=== PATIENT | male | born 1965 | race Hispanic/Latino ===

== ENCOUNTER 2021-10-18 12:53 | Emergency (ER) | payer BC, OTHER ==
--- OUTSIDE RECORDS SUMMARY | 2021-10-18 12:56 | XMS REPORT | Continuity of Care Document ---
:1965 Author Organization [facility] t Address [address] [place] [address] Care Team Providers Name Role Phone Unavailable Unavailable Unavailable Problems This patient has no known problems. Allergies, Adverse Reactions, Alerts This patient has no known allergies or adverse reactions. Medications This patient has no known medications. Procedures This patient has no known procedures. Results Test Description Test Time Test Comments Results Result Comments Source LIPID PANEL 2021-10-12 05:40:18 Test Item Value Reference Range Interpretation Comme nts CHOLESTEROL (test code = 2210) 114 MG/DL <200 TRIGLYCERIDES (test code = 2232) 67 MG/DL <150 HDL CHOLESTEROL (test code = 36 MG/DL >39 L 2220) CALC LDL CHOL (test code = 2237) 64 MG/DL <100 NOTE: CALCULATED LDL IS BASED ON MUKESH-HERRING METHOD WHICHINCLUDES A DJUSTABLE TRIGLYCERIDE:VL DL CHOLESTEROL RATIO.THIS FACT OR VARIES BY MEASURED TRIGLY CERIDE AND NON-HDLCHOLESTE ROL CONCENTRATIONS WITH INCREASED CALCULATED LDL SEENIN HIGHER T RIGLYCERIDE OR LOWER NON-HDL S PECIMENS. FOR MOREINFORMATION , SEE CLIENT ANNOUNCEMENT AT [email or web address] [email or web address] RATIO LDL/HDL (test code = 1.78 RATIO <3.55 2238) HEMOGLOBIN [id number] 05:20:31 Test Item Value Reference Range Interpretation Comments HEMOGLOBIN A1c (test 8.2 % 4.2-5.6 H [facility] [employer] code = 09438) ASSOCIATION IDELINES FOR HGB A1C: PREDIABETES/INC REASED RISK . . . . . . . 5.7 -6.4% DIAGNOSIS OF D IABETES . . . . . . . . . > =6.5% WITH CONFIRM ATION OR APPROPRIATE SYM PTOMS NOTE: ASSAY MAY BE AFFECTED BY HEMOGLOBINOP ATHIES (SICKLE MONALISA L ANEMIA, S-C DISEASE, OTHERS ) OR ARTIFICIALLY LO WERED BY DECREASED RED C ELL SURVIVAL (HEMOLYTIC ANEM IAS, BLOOD LOSS, ETC.) . CONSIDER ALTERNATE TESTI NG OR LABORATORY CONS ULTATION. UNLESS OTHER GARCIA INDICATED, ALL TESTING PERFORMED [facility] PATHOLOGY [facility] [address] [place] [id number] PARACHUTE SUPERVISOR: SEFERINO STINSON M.D. CLIA NUMBER [id number] CAP ACCREDITATION N O. [id number] LIPID [id number] 06:30:26 Test Item Value Reference Range Interpretation Comments CHOLESTEROL (test 102 MG/DL <200 code = 2210) TRIGLYCERIDES (test 63 MG/DL <150 code = 2232) HDL CHOLESTEROL (test 28 MG/DL >39 L code = 2220) CALC LDL CHOL (test 60 MG/DL <100 NOTE: C ALCULATED LDL code = 2237) IS BASED ON MUKESH-HERRING METHOD WHICHINCLUDES ADJUSTABLE TRIGLYCERIDE:VL DL CHOLESTEROL RAT IO.THIS FACTOR VARIES B Y MEASURED TRIGLY CERIDE AND NON-HDLCHOL ESTEROL CONCENTRATIONS WITH INCREASED CALCU LATED LDL SEENIN HIGH ER TRIGLYCERIDE OR LOWER NON-HDL SPECIME NS. FOR MOREINFORMATION , SEE CLIENT ANNOUNCE MENT AT [email or web address] [email or web address] RATIO LDL/HDL 2.14 RATIO <3.55 (test code = 2238) COMPREHENSIVE METABOLIC [id number] 06:30:26 Test Item Value Reference Range Interpretation Comments GLUCOSE (test code = 131 MG/DL 70-99 H 2216) BUN (test code = 19 MG/DL 6-20 2207) CREATININE (test 0.73 MG/DL 0.80-1.40 L EFFECTIVE code = 2214) 04/18/2021, [facility] HAS IMPLEMENTED THE NKF-ASN RECOMME NDED KD-EPI EGF R REFIT CALCULATI ON THAT DOES NOT I NCLUDE A COEFFICIENT FORRACE. FOR MO RE INFORMATION, SE E ANNOUNCEMENT [email or web address] eGFR (2020 CKD-EPI) 106 >60 (test code = 15582) ML/MIN/1.73 CALC BUN/CREAT (test 26 RATIO 6-28 code = 2235) SODIUM (test code = 144 MEQ/L [phone]) POTASSIUM (test code 4.2 MEQ/L 3.5-5.4 = 2228) CHLORIDE (test code 107 MEQ/L 95-107 = 2215) CARBON DIOXIDE (test 24 MEQ/L 19-31 code = 2206) CALCIUM (test code = 9.2 MG/DL 8.5-10.5 2208) PROTEIN, TOTAL (test 7.4 G/DL 6.1-8.3 code = 222) ALBUMIN (test code = 4.3 G/DL 3.5-5.2 2200) CALC GLOBULIN (test 3.1 G/DL 1.9-3.7 code = 2240) CALC A/G RATIO (test 1.4 RATIO 1.0-2.6 code = 2234) BILIRUBIN, TOTAL 1.0 MG/DL See_Comment [Automated message] (test code = 2207) The syste [employer] which generated this result transmitted ref erence range: <=1.2. T he reference range was not used to int erpret this result as normal/abnormal . ALKALINE PHOSPHATASE 98 U/L 40-123 (test code = 2203) AST (test code = 18 U/L 9-50 2217) ALT (test code = 28 U/L 5-50 UNLE SS 2218) OTHERWISE INDIC ATED, ALL TESTING PER FORMED ATCLINICAL PATH [facility]. [address] [place] [address] LABORATORY DIRE CTOR: SEFERINO MAI M.D. CLIA NUMBER [id number] CAP ACCREDITATION N O. [id number] HEMOGLOBIN [id number] 04:07:18 Test Item Value Reference Range Interpretation Comments HEMOGLOBIN A1c (test 7.3 % 4.2-5.6 H [facility] DIABETES code = 46365) ASSOCIATION IDELINES FOR HGB A1C: PREDIABETES/INC REASED RISK . . . . . . . 5.7 -6.4% DIAGNOSIS OF D IABETES . . . . . . . . . > =6.5% WITH CONFIRM ATION OR APPROPRIATE SYM PTOMS NOTE: ASSAY MAY BE AFFECTED BY HEMOGLOBINOP ATHIES (SICKLE MONALISA L ANEMIA, S-C DISEASE, OTHERS ) OR ARTIFICIALLY LO WERED BY DECREASED RED C ELL SURVIVAL (HEMOLYTIC ANEM IAS, BLOOD LOSS, ETC.) . CONSIDER ALTERNATE TESTI NG OR LABORATORY CONS ULTATION. CBC W/AUTO DIFF WITH [id number] 03:18:54 Test Item Value Reference Range Interpretation Comments WBC (test code = 12.6 K/UL 3.5-11.0 H 1001) RBC (test code = 5.85 M/UL 4.50-6.10 1002) HEMOGLOBIN (test code 18.1 G/DL 13.5-17.0 H = 1003) HEMATOCRIT (test code 51.4 % 40.0-51.0 H = 1004) MCV (test code = 87.9 fL 80.0-99.0 1005) MCH (test code = 30.9 PG 25.0-33.0 1006) MCHC (test code = 35.2 G/DL 31.0-36.0 1007) RDW (test code = 13.2 % 11.5-15.0 1038) NEUTROPHILS (test 69.2 % NOTE: EFF ECTIVE code = 1008) 03/28/2021, REFERENCE INTER VALS AND FLAGGING FORRELATIVE (%) WBC DIFFERENTIAL WI LL BE ELIMINATED REDUNDANT TOABS OLUTE COUNTS.SEE [email or web address] _upda te LYMPHOCYTES (test 23.9 % code = 1010) MONOCYTES (test code 4.9 % = 1011) EOSINOPHILS (test 1.3 % code = 1012) BASOPHILS (test code 0.4 % = 1013) IMMATURE GRANYLOCYTES 0.3 % (test code = 1036) NUCLEATED RBCS (test 0.0 /100 See_Comment [Autom ated message] code = 1065) WBC'S The system [employer] generated this result transmit michele reference range : 0.0. The refere nce range was not u sed to interpret th is result as normal/abnormal . PLATELET COUNT (test 161 K/UL 130-400 code = 1015) ABSOLUTE NEUTROPHILS 8.69 K/UL 1.50-7.50 H (test code = 1066) ABSOLUTE LYMPHOCYTES 3.01 K/UL 1.00-4.00 (test code = 1067) ABSOLUTE MONOCYTES 0.62 K/UL 0.20-1.00 (test code = 1068) ABSOLUTE EOSINOPHILS 0.16 K/UL 0.00-0.50 (test code = 1040) ABSOLUTE BASOPHILS 0.05 K/UL 0.00-0.20 (test code = 1069) ABS IMMATURE 0.04 K/UL 0.00-0.10 GRANULOCYTES (test code = 1020) ABS NUCLEATED RBCS 0.00 K/UL 0.00-0.11 (test code = 38862)
--- NOTE | 2021-10-18 14:18 | RAD REPORT ---
EXAM DESCRIPTION: USExtremity Venous Uni Ltd10/18/2021 1:39 pm CLINICAL HISTORY: Right leg pain FINDINGS: Right common femoral, superficial femoral, popliteal and right posterior tibial veins are compressible and demonstrate augmentation. Doppler demonstrates good flow. Echogenic material consistent with acute thrombus is present within the anterior tibial vein Grayscale, color and spectral analysis performed on all vessels IMPRESSION: Acute thrombus within the anterior tibial vein within the calf
--- NOTE | 2021-10-18 14:19 | RAD REPORT ---
EXAM DESCRIPTION: US - Lower Extremity Artery Uni Ltd - 10/18/2021 1:49 pm CLINICAL HISTORY: Leg pain COMPARISON: None FINDINGS: The right common femoral artery demonstrates triphasic waveforms Moderate thrombus within the mid right superficial femoral artery. The distal right superficial femoral artery is occluded Collaterals reconstitute the popliteal artery. The right popliteal, posterior tibial and dorsalis pedis arteries demonstrate monophasic waveforms di minished in amplitude Grayscale, color and spectral analysis performed on all vessels IMPRESSION: Occlusion of the distal right superficial femoral artery
[2021-10-18 14:57] LABS: Absolute Lymphocytes (CBC) 2.6 K/uL (0.7-4.9); Hematocrit 50.2 % (39.6-49.0); Lymphocytes % 18.4 % (15.3-44.8); MPV 9.3 fL (7.6-11.3); RBC Red Blood Cell Count 5.59 M/uL (4.33-5.43)
[2021-10-18 15:01] LABS: Protime INR 1.01
[2021-10-18] MEDS ORDERED: HEPARIN 5000 UNIT/ML 1 ML VIAL ONE (15:04)
[2021-10-18] MEDS ORDERED: HEPARIN/D5W 25,000 UNIT/500 ML BAG IV ONE (15:04)
--- NOTE | 2021-10-18 15:12 | ER ---
Nurse's Notes [facility] Name: Connor Mirza Sr Age: 56 yrs Sex: Male : 1965 Arrival Date: 10/18/2021 Time: 12:57 Bed 7 Private MD: Diagnosis: Acute embolism and thrombosis of other specified deep vein of right lower extremity-anterior tibial vein;Moderate thrombus within mid right superficial femoral artery;Distal right superficial femoral artery occlusion Presentation: 10/18 13:10 Chief complaint: Patient states: that for approx 3 days now, he has been having pain in ap3 his right calf area and it radiates to his right ankle. patient states the pain feels like cramps and only comes on during ambulation. patient also reports a new onset "green hue" to his right ankle. Coronavirus screen: At this time, the client does not indicate any symptoms associated with coronavirus-19. Ebola Screen: No symptoms or risks identified at this time. Initial Sepsis Screen: Does the patient meet any 2 criteria? No. Patient's initial sepsis screen is negative. Does the patient have a suspected source of infection? No. Patient's initial sepsis screen is negative. Risk Assessment: Do you want to hurt yourself or someone else? Patient reports no desire to harm self or others. Onset of symptoms was October 15, 2021. 13:10 Method Of Arrival: Ambulatory ap3 13:10 Acuity: BINTA 3 ap3 Triage Assessment: 13:13 General: Appears in no apparent distress. Behavior is calm, cooperative. Pain: ap3 Complains of pain in right calf Pain radiates to right ankle Pain began 2-3 days ago. Pain: Aggravated by increased activity. Neuro: Level of Consciousness is awake, alert, obeys commands, Oriented to person, place, time, situation. Cardiovascular: Patient's skin is warm and dry. Respiratory: Airway is patent Respiratory effort is even, unlabored, Respiratory pattern is regular, symmetrical. Historical: - Allergies: 13:11 No Known Allergies; ap3 - Home Meds: 17:18 metformin 500 mg oral tab 2 tabs 2 times per day [Active]; Levemir U-100 Insulin 100 ph unit/mL subcutaneous soln 20 unit nightly [Active]; amlodipine oral [Active]; Lisinopril Oral [Active]; atorvastatin oral [Active]; - PMHx: 13:11 Hypertensive disorder; Diabetes mellitus; ap3 - Immunization history:: Client reports receiving the 2nd dose of the Covid vaccine. - Social history:: Smoking status: Patient reports the use of cigarette tobacco products, smokes one-half pack cigarettes per day. Screenin:13 Abuse screen: Denies threats or abuse. Nutritional screening: No deficits noted. ap3 Tuberculosis screening: No symptoms or risk factors identified. 14:52 Fall Risk None identified. ph Assessment: 14:51 General: Appears in no apparent distress. comfortable, well groomed, Behavior is calm, ph cooperative, appropriate for age, Denies fever, feeling ill. Pain: Complains of pain in right calf. Neuro: Level of Consciousness is awake, alert, obeys commands, Oriented to person, place, time, situation. Cardiovascular: Capillary refill < 3 seconds in bilateral fingers Patient's skin is warm and dry. Pulses are 3+ in left dorsalis pedis artery. Respiratory: Denies shortness of breath. Derm: Skin is intact, is healthy with good turgor, Skin is pink, warm \\T\\ dry. Musculoskeletal: Circulation, motion, and sensation intact. Range of motion: intact in all extremities. 17:30 Reassessment: Patient appears in no apparent distress at this time. Patient and/or ph family updated on plan of care and expected duration. Pain level reassessed. Patient is alert, oriented x 3, equal unlabored respirations, skin warm/dry/pink. Attempted to call report to [facility], placed on hold approx 13 minutes, will attempt to call again. 18:00 Reassessment: Patient appears in no apparent distress at this time. Patient and/or ph family updated on plan of care and expected duration. Pain level reassessed. Patient is alert, oriented x 3, equal unlabored respirations, skin warm/dry/pink. Report called to Georgina GONZALEZ at [facility], awaiting EMS for transport, pt resting comfortably watching videos on his phone. Vital Signs: 13:10 BP 134 / 82; Pulse 67; Resp 17; Temp 98.0; Pulse Ox 97% ; Weight 89.36 kg; Height 5 ft. ap3 6 in. (167.64 cm); 15:54 BP 141 / 78; Pulse 69; Resp 18; Temp 97.8; Pulse Ox 98% on R/A; ph 18:40 BP 132 / 86; Pulse 64; Resp 18; Pulse Ox 98% on R/A; ph 13:10 Body Mass Index 31.80 (89.36 kg, 167.64 cm) ap3 ED Course: 12:57 Patient arrived in ED. rg4 13:01 Julio Cesar Mills NP is PHCP. pm1 13:01 Amanuel Partida MD is Attending Physician. pm1 13:11 Triage completed. ap3 13:13 Arm band placed on left wrist. ap3 13:13 Patient has correct armband on for positive identification. Pulse ox on. NIBP on. ap3 13:41 Extremity Venous Uni Ltd US In Process Unspecified. EDMS 13:42 Lower Extremity Artery Uni Ltd US In Process Unspecified. EDMS 14:37 Daniella Mendoza, CARLOS is Primary Nurse. ph 14:49 Initial lab(s) drawn, by me, sent to lab. Missed attempt(s): 22 gauge in right forearm. ph Bleeding controlled, band aid applied, catheter tip intact. 15:40 Inserted saline lock: 20 gauge in right forearm, using aseptic technique. bp 15:52 initiated transfer to [facility]. bd 15:53 No provider procedures requiring assistance completed. Patient transferred, IV remains ph in place. 15:57 pt denied at [facility], [facility] due to not beds at [facility] and no bd vascular at [facility]. per shell. 16:17 initiated transfer to [facility]. bd 16:54 pt accepted in transfer to [facility] by Dr St,admin approval given by daljit Vazquez. Administered Medications: 15:50 Drug: Heparin (DVT/PE- Bolus per protocol) - HEParin 80 units/kg {Co-Signature: bp ph (Henry Reinoso RN).} Route: IVP; Site: right forearm; 15:52 Follow up: Response: No adverse reaction ph 15:51 Drug: Heparin (DVT/PE Drip) 18 units/kg/hr - (HEParin 98431 units, D5W 500 ml) ph {Co-Signature: bp (Henry Reinoso RN).} {Note: 1600 units/kg/hr.} Route: IV; Rate: calculated rate; Site: right forearm; 15:52 Follow up: Response: No adverse reaction; IV Status: Infusion continued upon transfer ph Medication: 14:52 VIS not applicable for this client. ph Outcome: 15:11 ER care complete, transfer ordered by MD. pm1 19:20 Transferred by ground EMS to other acute care facility: [facility]. Transfer form completed. sm5 X-rays sent w/ patient. 19:20 Condition: stable 19:20 Instructed on the need for transfer. 19:29 Patient left the ED. as6 Signatures: Dispatcher [employer] EDMS Mallika Clayton Patricia, RN RN ph Julio Cesar Mills, HAROON MANAGER COPY pm1 Rachna Peguero rg4 Henry Reinoso RN RN bp Deepti Luna RN RN ap3 Reji Salguero RN RN as6 Yin Cruz RN RN 5 Henry Reinoso RN bp Corrections: (The following items were deleted from the chart) 17:21 13:11 Home Meds: insulin-unknown; ap3 ph 17:21 13:11 Home Meds: Metformin Oral; ap3 ph 17:21 13:11 Home Meds: unknown blood pressure med; ap3 ph
--- NOTE | 2021-10-18 15:12 | EDPHYS ---
Physician Documentation [facility] Name: Connor Mirza Sr Age: 56 yrs Sex: Male : 1965 Arrival Date: 10/18/2021 Time: 12:57 Bed 7 Private MD: ED Physician Amanuel Partida HPI: 10/18 13:22 This 56 yrs old Male presents to ER via Ambulatory with complaints of Right pm1 Leg Pain. 13:22 The patient presents with pain, that is acute. The complaints affect the right calf. pm1 Context: The problem was sustained at an unknown site, resulted from an unknown cause, the patient can fully bear weight, the patient is able to ambulate, Problem is a result from a previous injury: No. Onset: The symptoms/episode began/occurred 3 day(s) ago. Modifying factors: the symptoms are aggravated by walking. Associated signs and symptoms: Pertinent negatives fever, numbness, swelling, tingling. Treatment prior to arrival includes: no previous treatment. Severity of symptoms: in the emergency department the symptoms are actually worse. The patient has not experienced similar symptoms in the past. The patient has not recently seen a physician. Historical: - Allergies: 13:11 No Known Allergies; ap3 - Home Meds: 17:18 metformin 500 mg oral tab 2 tabs 2 times per day [Active]; Levemir U-100 Insulin 100 ph unit/mL subcutaneous soln 20 unit nightly [Active]; amlodipine oral [Active]; Lisinopril Oral [Active]; atorvastatin oral [Active]; - PMHx: 13:11 Hypertensive disorder; Diabetes mellitus; ap3 - Immunization history:: Client reports receiving the 2nd dose of the Covid vaccine. - Social history:: Smoking status: Patient reports the use of cigarette tobacco products, smokes one-half pack cigarettes per day. ROS: 13:22 Constitutional: Negative for fever, chills, and weight loss, Cardiovascular: Negative pm1 for chest pain, palpitations, and edema, Respiratory: Negative for shortness of breath, cough, wheezing, and pleuritic chest pain, Abdomen/GI: Negative for abdominal pain, nausea, vomiting, diarrhea, and constipation. 13:22 MS/extremity: Positive for pain, of the right calf, with walking, Negative for injury or acute deformity, decreased range of motion, deformity. 13:22 Skin: Positive for discoloration, of the right foot with walking. 13:22 Neuro: Positive for numbness and tingling to right foot with walking when calf pain is present. 13:22 All other systems are negative. Exam: 13:22 Constitutional: This is a well developed, well nourished patient who is awake, alert, pm1 and in no acute distress. Head/Face: Normocephalic, atraumatic. 13:22 Skin: Warm, dry with normal turgor. Normal color with no rashes, no lesions, and no evidence of cellulitis. MS/ Extremity: Pulses equal, no cyanosis. Neurovascular intact. Full, normal range of motion. 13:22 Cardiovascular: Exam negative for acute changes, Rate: normal, Rhythm: regular, Pulses: pulse deficits are appreciated, right dorsal pedis and right posterior tibial pulse not palpable, Heart sounds: normal, normal S1and S2, Edema: is not appreciated. 13:22 Respiratory: Exam negative for acute changes, respiratory distress, shortness of breath. 13:22 Neuro: Exam negative for acute changes, Orientation: is normal, Mentation: is normal, Motor: is normal, moves all fours. Vital Signs: 13:10 BP 134 / 82; Pulse 67; Resp 17; Temp 98.0; Pulse Ox 97% ; Weight 89.36 kg; Height 5 ft. ap3 6 in. (167.64 cm); 15:54 BP 141 / 78; Pulse 69; Resp 18; Temp 97.8; Pulse Ox 98% on R/A; ph 18:40 BP 132 / 86; Pulse 64; Resp 18; Pulse Ox 98% on R/A; ph 13:10 Body Mass Index 31.80 (89.36 kg, 167.64 cm) ap3 MDM: 13:15 Patient medically screened. pm1 14:56 Data reviewed: vital signs. Data interpreted: Pulse oximetry: on room air is 97 %. pm1 Interpretation: normal. 15:08 Counseling: I had a detailed discussion with the patient and/or guardian regarding: the pm1 historical points, exam findings, and any diagnostic results supporting the discharge/admit diagnosis, lab results, radiology results, the need to transfer to another facility, [facility] does not immediately have the required specialist. 16:52 ED course: Patient transferred to [facility] system. Attempted to transfer to [facility] but pm1 denied due to bed availability. 16:52 Physician consultation: Vascular surgeon was contacted at 16:53, regarding regarding pm1 transfer, [facility] patient's condition, and will see patient. 10/18 13:22 Order name: CBC with Diff; Complete Time: 15:34 pm1 10/18 13:22 Order name: BMP; Complete Time: 15:34 pm1 10/18 13:22 Order name: Extremity Venous Uni Ltd US; Complete Time: 14:34 pm1 10/18 14:43 Order name: PT-INR; Complete Time: 15:34 pm1 10/18 14:43 Order name: Ptt, Activated; Complete Time: 15:34 pm1 10/18 14:50 Order name: COVID-19 SARS RT PCR (Document "Date of Onset" if Symptomatic); Complete ph Time: 17:12 10/18 13:22 Order name: Lower Extremity Artery Uni Ltd US; Complete Time: 14:34 pm1 10/18 13:22 Order name: IV Saline Lock; Complete Time: 14:49 pm1 Administered Medications: 15:50 Drug: Heparin (DVT/PE- Bolus per protocol) - HEParin 80 units/kg {Co-Signature: bp ph (Henry Reinoso RN).} Route: IVP; Site: right forearm; 15:52 Follow up: Response: No adverse reaction ph 15:51 Drug: Heparin (DVT/PE Drip) 18 units/kg/hr - (HEParin 70470 units, D5W 500 ml) ph {Co-Signature: bp (Henry Reinoso RN).} {Note: 1600 units/kg/hr.} Route: IV; Rate: calculated rate; Site: right forearm; 15:52 Follow up: Response: No adverse reaction; IV Status: Infusion continued upon transfer ph Disposition Summary: 10/18/21 15:11 Transfer Ordered Transfer Location: [facility] pm1 Reason: Specialty pm1 Condition: Stable pm1 Problem: new pm1 Symptoms: have improved pm1 Accepting Physician: (10/18/21 19:29) as6 Diagnosis - Moderate thrombus within mid right superficial femoral artery pm1 - Acute embolism and thrombosis of other specified deep vein of right lower extremity pm1 - anterior tibial vein(10/18/21 15:13) - Distal right superficial femoral artery occlusion pm1 Forms: - Medication Reconciliation Form pm1 - SBAR form pm1 Signatures: Dispatcher [employer] EDDaniella Casillas, CARLOS RN ph Julio Cesar Mills, HAROON EXPLOSIVES HANDLER pm1 Deepti Luna RN RN ap3 Reji Salguero RN RN as6 Henry Reinoso RN bp Corrections: (The following items were deleted from the chart) 15:13 15:11 MD pm1 pm1 15:13 15:11 Acute embolism and thrombosis of other specified deep vein of right lower pm1 extremity pm1 15:20 15:13 MD pm1 pm1 17:21 13:11 Home Meds: insulin-unknown; ap3 ph 17:21 13:11 Home Meds: Metformin Oral; ap3 ph 17:21 13:11 Home Meds: unknown blood pressure med; ap3 ph 19:29 15:20 MD pm1 as6
[2021-10-18 15:16] LABS: Potassium 3.8 mmol/L (3.5-5.1)
[2021-10-18 19:39] VITALS: TEMP 97.8; O2SAT 98
[2021-10-18 19:41] VITALS: BP 132/86
== END 2021-10-18 19:29 | disposition short-term general hospital (02) ==
LOC: ER 12:53
DX: I82.411 Acute embolism and thrombosis of right femoral vein (principal); I82.441 Acute embolism and thrombosis of right tibial vein; I70.8 Atherosclerosis of other arteries; E11.9 Type 2 diabetes mellitus without complications; I10 Essential (primary) hypertension; F17.210 Nicotine dependence, cigarettes, uncomplicated; Z79.4 Long term (current) use of insulin; Z20.822 Contact with and (suspected) exposure to COVID-19
CPT/HCPCS: 85025; 80048; 36415; 85610; 85730; 93926; 93971; U0003; J1644 ×2; 96374; 99285

== ENCOUNTER 2021-11-07 04:25 | Emergency (ER) | payer BC ==
[2021-11-07] MEDS ORDERED: ONDANSETRON 4 MG/2 ML VIAL ONE ×2 (05:15→05:46)
[2021-11-07] MEDS ORDERED: BISACODYL 10 MG RECTAL SUPP ONE (05:15)
[2021-11-07] MEDS ORDERED: LACTULOSE 20 GM/30 ML UCUP ONE ×2 (05:16→08:08)
[2021-11-07] MEDS ORDERED: NA CHLORIDE 0.9% 1,000 ML ONE (05:16)
[2021-11-07 05:44] LABS: Absolute Lymphocytes (CBC) 1.4 K/uL (0.7-4.9); Hematocrit 42.2 % (39.6-49.0); MCV 88.4 fL (80-100); MPV 8.9 fL (7.6-11.3); RBC Red Blood Cell Count 4.77 M/uL (4.33-5.43)
[2021-11-07] MEDS ORDERED: FENTANYL CITR 100 MCG/2 ML ONE (05:44)
[2021-11-07 05:57] LABS: Albumin 3.3 g/dL (3.4-5.0); Potassium 3.9 mmol/L (3.5-5.1); Protein, Total 7.2 g/dL (6.4-8.2)
--- NOTE | 2021-11-07 07:44 | RAD REPORT ---
EXAM DESCRIPTION: CT - Abdomen Pelvis W Contrast - 11/07/2021 7:27 am CLINICAL HISTORY: Abdominal pain, acute, nonlocalized COMPARISON: No comparisons TECHNIQUE: Biphasic, helical CT imaging of the abdomen and pelvis was performed following 100 ml non -ionic IV contrast. Oral contrast was given. All CT scans are performed using dose optimization technique as appropriate and may include automated exposure control or mA/KV adjustment according to patient size. FINDINGS: No suspicious findings in the lung bases. Liver attenuation is mildly fatty infiltrated. No focal liver parenchymal lesion. No portal vein abno rmality identified. Spleen and pancreas show no suspicious findings. Gallbladder is distended but not grossly dilated. There is no wall thickening or edema. A 3 cm stone is present in the fundus of the gallbladder. There is a 2 centimeter rim calcified stone at the neck of the gallbladder. No biliary tree abnormality identified. Symmetric renal function is seen with no hydronephrosis or suspicious renal mass. No pyelonephritis o r acute parenchymal process. No adrenal abnormalities. Urinary bladder is mostly contracted. No gross abnormality seen. Prostate gland and seminal vesicles show no suspicious findings. Contrast filled stomach shows no wall thickening or mass. No acute small bowel finding identifiable. The appendix is normal. Large amount of stool is present distending the colon from cecum to mid transverse colon. There is ai r filling but not dilating the left-side of the transverse colon. There is of mucosal nodularity are seen in the left-side of the transverse colon likely summation artifact of mucosal folds rather than polyps. However, there is a 2.5 centimeter long area of circumferential narrowing of the colon at the splenic flexure. The possibility of a mass cannot be excluded. There is no congestion or edema in th e adjacent fat. Peristalsis artifact can have this appearance. Distal to this focal finding the left- side of the colon is decompressed with very little stool present within the lumen. No free air, free fluid or inflammatory stranding. No mass or bulky lymphadenopathy. Fat extends int o each inguinal canal, slightly larger on the right. No suspicious bony findings. IMPRESSION: Placed to gallstones are present in the distended but nondilated gallbladder including a 2 centimeter stone at the neck. No gallbladder wall thickening, pericholecystic edema or biliary josef e abnormality. Approximately 2.5 cm area of circumferential narrowing of the colon at the splenic flexure. While thi s may simply be a peristalsis artifact, the colon proximal to this point is distended and colon dista l to this point is decompressed. Follow-up colonoscopy may be needed to determine if this is a true finding. Mild diffuse fatty infiltration of the liver.
[2021-11-07 08:08] LABS: Urine Blood Trace-lysed (Negative); Urine Glucose Negative (Negative); Urine Protein Negative (Negative); Urine pH 5.5 (5.0-7.0)
[2021-11-07] MEDS ORDERED: KETOROLAC 30 MG/ML INJ ONE (10:08)
--- NOTE | 2021-11-07 11:28 | RAD REPORT ---
EXAM DESCRIPTION: US - Abdomen Exam Limited - 11/07/2021 10:33 am CLINICAL HISTORY: Abdominal pain. FINDINGS: Gallstones. Gallbladder is distended. Moderate amount of sludge. Gallbladder wall upper limits normal thickness The biliary tree is normal caliber. IMPRESSION: Cholelithiasis with gallbladder distention
[2021-11-07 11:35] LABS: Protime INR 1.12
--- NOTE | 2021-11-07 14:54 | ER ---
Nurse's Notes [facility] Name: Connor Mirza Sr Age: 56 yrs Sex: Male : 1965 Arrival Date: 11/07/2021 Time: 04:28 Bed 15 Private MD: Diagnosis: Abdominal pain, Generalized;Constipation;Other cholelithiasis without obstruction;Vomiting Presentation: 11/07 04:48 Chief complaint: Patient states: "I havent been able to menon menon in 3 days and my vc1 stomach has been hurting. Tonight the pain got really bad and I threw up a few times and it had some blood in it so I decided I should come to the ER". 04:49 Coronavirus screen: Vaccine status: Patient reports receiving the 2nd dose of the covid vc1 vaccine. Moderna At this time, the client does not indicate any symptoms associated with coronavirus-19. Ebola Screen: No symptoms or risks identified at this time. Initial Sepsis Screen: Does the patient meet any 2 criteria? No. Patient's initial sepsis screen is negative. Does the patient have a suspected source of infection? No. Patient's initial sepsis screen is negative. Risk Assessment: Do you want to hurt yourself or someone else? Patient reports no desire to harm self or others. Onset of symptoms was November 04, 2021. 04:49 Method Of Arrival: Wheelchair vc1 04:49 Acuity: BINTA 3 vc1 Triage Assessment: 04:52 General: Appears in no apparent distress. uncomfortable, Behavior is calm, cooperative, vc1 appropriate for age. Pain: Complains of pain in epigastric area Pain does not radiate. Pain currently is 8 out of 10 on a pain scale. at worst was 10 out of 10 on a pain scale. Quality of pain is described as pressure, sharp. EENT: No deficits noted. EENT: Reports. Neuro: Level of Consciousness is awake, alert, obeys commands, Oriented to person, place, time, situation, Appropriate for age. Cardiovascular: No deficits noted. Respiratory: Airway is patent Respiratory effort is even, unlabored, Respiratory pattern is regular, symmetrical. Respiratory:. GI: Abdomen is round non-distended, Last BM was November 04, 2021. Reports constipation, epigastric pain, vomiting. GI: Reports blood in vomit. : No deficits noted. Derm: No deficits noted. Musculoskeletal: No deficits noted. Historical: - Allergies: 04:50 No Known Allergies; vc1 - PMHx: 04:50 diabetes mellitus; Hypertensive disorder; DVT; High Cholesterol; vc1 - Immunization history:: Adult Immunizations up to date, Client reports receiving the 2nd dose of the Covid vaccine. - Social history:: Smoking status: Patient denies any tobacco usage or history of. - Family history:: not pertinent. Screenin:52 Abuse screen: Denies threats or abuse. Nutritional screening: No deficits noted. vc1 Tuberculosis screening: No symptoms or risk factors identified. Fall Risk None identified. Assessment: 04:54 GI: Abdomen is tender to palpation Guarding noted in epigastric area. vc1 05:00 GI: Bowel sounds diminished in right upper quadrant, left upper quadrant, right lower ke1 quadrant and left lower quadrant. 06:11 Reassessment: Patient appears in no apparent distress at this time. Patient states ke1 feeling better. Patient states symptoms have improved. SLEEPING . 07:34 General: Appears in no apparent distress. Behavior is calm, cooperative. Pain: ke1 Complains of pain in abdomen diffusely Pain currently is 3 out of 10 on a pain scale. Quality of pain is described as crampy. 09:45 Reassessment: Patient and/or family updated on plan of care and expected duration. Pain jh6 level reassessed. pt stating that the pain has moved to lower abd and has had three small lose B/M since meds given. states that the pain was increased. provider advised. Vital Signs: 04:49 BP 164 / 86; Pulse 62; Resp 18; Temp 98.1(O); Pulse Ox 100% on R/A; Weight 88.45 kg; vc1 Height 5 ft. 6 in. (167.64 cm); Pain 8/10; 06:20 BP 162 / 82; Pulse 58; Resp 16; Pulse Ox 99% on R/A; ke1 07:34 BP 173 / 78; Pulse 65; Resp 16; Pulse Ox 100% ; ke1 04:49 Body Mass Index 31.47 (88.45 kg, 167.64 cm) vc1 ED Course: 04:28 Patient arrived in ED. ja2 04:40 Perry Sanz MD is Attending Physician. rafael 04:50 Triage completed. vc1 04:50 Arm band placed on right wrist. vc1 04:56 Chaz Ventura, CARLOS is Primary Nurse. ke1 05:20 Inserted saline lock: 20 gauge in right antecubital area, using aseptic technique. ke1 06:21 Bed in low position. Call light in reach. ke1 07:[address] ke1 07:28 CT Abd/Pelvis - PO and IV Contrast In Process Unspecified. EDMS 09:00 Attending Physician role handed off by Perry Sanz MD kdr 09:00 Vitaly Amador MD is Attending Physician. kdr 10:28 Patient taken to ultrasound. via stretcher. jh6 10:35 US Abdomen Limited In Process Unspecified. EDMS 14:53 Cesar Cobb MD is Referral Physician. 6 Administered Medications: 05:32 Drug: NS 0.9% 1000 ml Route: IV; Rate: 1 bolus; Site: right antecubital; ke1 05:32 Drug: Zofran (Ondansetron) 4 mg Route: IVP; Site: right antecubital; ke1 05:32 Drug: Dulcolax (bisacodyl) Suppository 10 mg Route: MN; ke1 05:32 Drug: Lactulose 30 grams Volume: 45 ml; Route: PO; ke1 05:45 Drug: fentaNYL (PF) 50 mcg Route: IVP; Site: right antecubital; ke1 05:45 Drug: Zofran (Ondansetron) 4 mg Route: IVP; Site: right antecubital; ke1 08:07 Drug: Lactulose 30 grams Volume: 45 ml; Route: PO; ke1 09:00 Drug: Ketorolac 15 mg Route: IVP; Site: right antecubital; 6 11:02 Follow up: Response: Pain is decreased [facility] Outcome: 14:53 Discharge ordered by . [facility] 14:53 Patient left the ED. [facility] Signatures: Dispatcher [employer] EDMD Perry Sanz MD MD cha Rittger, Kevin, MD MD kdr Alexander, Jessica ja2 Hastedt, Jennifer, RN RN 6 Anita Plunkett RN RN 1 Chaz Ventura RN RN ke
--- NOTE | 2021-11-07 14:54 | EDPHYS ---
Physician Documentation [facility] Name: Connor Mirza Sr Age: 56 yrs Sex: Male : 1965 Arrival Date: 11/07/2021 Time: 04:28 Bed 15 Private MD: ED Physician Vitaly Amador HPI: 11/07 07:44 This 56 yrs old Male presents to ER via Wheelchair with complaints of rafael Constipation, Vomiting Blood, Abdominal Pain. 07:44 The patient presents with abdominal pain in the upper abdomen, in the lower abdomen. rafael Onset: The symptoms/episode began/occurred yesterday. The symptoms do not radiate. Associated signs and symptoms: Pertinent positives: constipation. The symptoms are described as constant, crampy. Modifying factors: The symptoms are alleviated by nothing, the symptoms are aggravated by nothing. Severity of pain: At its worst the pain was moderate in the emergency department the pain is unchanged. The patient has not experienced similar symptoms in the past. Historical: - Allergies: 04:50 No Known Allergies; vc1 - PMHx: 04:50 diabetes mellitus; Hypertensive disorder; DVT; High Cholesterol; vc1 - Immunization history:: Adult Immunizations up to date, Client reports receiving the 2nd dose of the Covid vaccine. - Social history:: Smoking status: Patient denies any tobacco usage or history of. - Family history:: not pertinent. ROS: 07:44 Constitutional: Negative for fever, chills, and weight loss, Eyes: Negative for injury, rafael pain, redness, and discharge, ENT: Negative for injury, pain, and discharge, Neck: Negative for injury, pain, and swelling, Cardiovascular: Negative for chest pain, palpitations, and edema, Respiratory: Negative for shortness of breath, cough, wheezing, and pleuritic chest pain, Back: Negative for injury and pain, : Negative for injury, bleeding, discharge, and swelling, MS/Extremity: Negative for injury and deformity, Skin: Negative for injury, rash, and discoloration, Neuro: Negative for headache, weakness, numbness, tingling, and seizure, Psych: Negative for depression, anxiety, suicide ideation, homicidal ideation, and hallucinations, Allergy/Immunology: Negative for hives, rash, and allergies, Endocrine: Negative for neck swelling, polydipsia, polyuria, polyphagia, and marked weight changes, Hematologic/Lymphatic: Negative for swollen nodes, abnormal bleeding, and unusual bruising. 07:44 Abdomen/GI: Positive for abdominal pain, constipation, of the suprapubic area, right upper quadrant, left upper quadrant, right lower quadrant and left lower quadrant. Exam: 07:44 Constitutional: This is a well developed, well nourished patient who is awake, alert, rafael and in no acute distress. Head/Face: Normocephalic, atraumatic. Eyes: Pupils equal round and reactive to light, extra-ocular motions intact. Lids and lashes normal. Conjunctiva and sclera are non-icteric and not injected. Cornea within normal limits. Periorbital areas with no swelling, redness, or edema. ENT: Nares patent. No nasal discharge, no septal abnormalities noted. Tympanic membranes are normal and external auditory canals are clear. Oropharynx with no redness, swelling, or masses, exudates, or evidence of obstruction, uvula midline. Mucous membranes moist. Neck: Trachea midline, no thyromegaly or masses palpated, and no cervical lymphadenopathy. Supple, full range of motion without nuchal rigidity, or vertebral point tenderness. No Meningismus. Chest/axilla: Normal chest wall appearance and motion. Nontender with no deformity. No lesions are appreciated. Cardiovascular: Regular rate and rhythm with a normal S1 and S2. No gallops, murmurs, or rubs. Normal PMI, no JVD. No pulse deficits. Respiratory: Lungs have equal breath sounds bilaterally, clear to auscultation and percussion. No rales, rhonchi or wheezes noted. No increased work of breathing, no retractions or nasal flaring. Back: No spinal tenderness. No costovertebral tenderness. Full range of motion. Male : Normal genitalia with no discharge or lesions. Skin: Warm, dry with normal turgor. Normal color with no rashes, no lesions, and no evidence of cellulitis. MS/ Extremity: Pulses equal, no cyanosis. Neurovascular intact. Full, normal range of motion. Neuro: Awake and alert, GCS 15, oriented to person, place, time, and situation. Cranial nerves II-XII grossly intact. Motor strength 5/5 in all extremities. Sensory grossly intact. Cerebellar exam normal. Normal gait. Psych: Awake, alert, with orientation to person, place and time. Behavior, mood, and affect are within normal limits. 07:44 Abdomen/GI: Inspection: distension, that is mild, Bowel sounds: active, Palpation: mild abdominal tenderness, in all quadrants, Liver: no appreciated palpable abnormalities, Hernia: not appreciated. Vital Signs: 04:49 BP 164 / 86; Pulse 62; Resp 18; Temp 98.1(O); Pulse Ox 100% on R/A; Weight 88.45 kg; vc1 Height 5 ft. 6 in. (167.64 cm); Pain 8/10; 06:20 BP 162 / 82; Pulse 58; Resp 16; Pulse Ox 99% on R/A; ke1 07:34 BP 173 / 78; Pulse 65; Resp 16; Pulse Ox 100% ; ke1 04:49 Body Mass Index 31.47 (88.45 kg, 167.64 cm) vc1 MDM: 04:40 Patient medically screened. rafael 07:51 Differential diagnosis: bowel obstruction, Cholelithiasis, diverticulitis, gastritis, rafael gastroesophageal reflux disease, GI Bleed, Irritable bowel syndrome, Mesenteric ischemia or infarction, non-specific abd pain, pancreatitis, Peptic Ulcer Disease, urinary tract infection. Data reviewed: vital signs, nurses notes, lab test result(s), radiologic studies, CT scan, plain films. Data interpreted: state [employer] agent: rate is 65 beats/min, Pulse oximetry: on room air is 100 %. Counseling: I had a detailed discussion with the patient and/or guardian regarding: the historical points, exam findings, and any diagnostic results supporting the discharge/admit diagnosis, lab results, radiology results, the need for outpatient follow up, for definitive care, a general surgeon. 13:10 ED course: Patient was stable and felt much better after having a large bowel movement. kdr 11/07 05:03 Order name: CBC with Diff; Complete Time: 07:43 rafael 11/07 05:03 Order name: CMP; Complete Time: 07:43 rafael 11/07 05:03 Order name: Lipase; Complete Time: 07:43 rafael 11/07 05:03 Order name: CT Abd/Pelvis - PO and IV Contrast; Complete Time: 07:47 rafael 11/07 08:08 Order name: Urine Dipstick-Ancillary; Complete Time: 08:18 EDMS 11/07 11:14 Order name: PT-INR; Complete Time: 13:04 6 11/07 07:47 Order name: US Abdomen Limited; Complete Time: 13:04 rafael 11/07 05:03 Order name: IV Saline Lock; Complete Time: 05:33 [facility] 11/07 05:03 Order name: Labs collected and sent; Complete Time: 05:33 [facility] Administered Medications: 05:32 Drug: NS 0.9% 1000 ml Route: IV; Rate: 1 bolus; Site: right antecubital; ke1 05:32 Drug: Zofran (Ondansetron) 4 mg Route: IVP; Site: right antecubital; ke1 05:32 Drug: Dulcolax (bisacodyl) Suppository 10 mg Route: [place]; ke1 05:32 Drug: Lactulose 30 grams Volume: 45 ml; Route: PO; ke1 05:45 Drug: fentaNYL (PF) 50 mcg Route: IVP; Site: right antecubital; ke1 05:45 Drug: Zofran (Ondansetron) 4 mg Route: IVP; Site: right antecubital; ke1 08:07 Drug: Lactulose 30 grams Volume: 45 ml; Route: PO; ke1 09:00 Drug: Ketorolac 15 mg Route: IVP; Site: right antecubital; [facility] 11:02 Follow up: Response: Pain is decreased [facility] Disposition: 07:51 Co-signature as Attending Physician, Cesar Cobb MD. [facility] Disposition Summary: 11/07/21 14:53 Discharge Ordered Location: Home [facility] Problem: new [facility] Symptoms: have improved [facility] Condition: Stable [facility] Diagnosis - Abdominal pain, Generalized jh6 - Constipation jh6 - Other cholelithiasis without obstruction jh6 - Vomiting [facility] Followup: rafael - With: Private Physician - When: 2 - 3 days - Reason: Recheck today's complaints, Re-evaluation by your physician Followup: rafael - With: - When: 2 - 3 days - Reason: Recheck today's complaints, Continuance of care, Re-evaluation by your physician Discharge Instructions: - Discharge Summary Sheet rafael - Abdominal Pain, Adult rafael - Constipation, Adult rafael - Cholelithiasis rafael - Constipation, Adult, [id number] rafael - Cholelithiasis, [id number] rafael - Abdominal Pain, Adult, [id number] rafael Forms: - Medication Reconciliation Form [facility] - Thank You Letter jh6 - Antibiotic Education jh6 - Prescription Opioid Use 6 Prescriptions: - Lactulose 10 gram/15 mL Oral Solution - take 30 milliliters by ORAL route every 12 hours; 300 milliliter; Refills: 0, rafael Product Selection Permitted - Dulcolax (bisacodyl) 10 mg Rectal suppository - insert 1 suppository by RECTAL route once daily as needed for constipation; 14 rafael suppository; Refills: 0, Product Selection Permitted - dicyclomine 20 mg Oral Tablet - take 1 tablet by ORAL route 4 times per day; 28 tablet; Refills: 0, Product rafael Selection Permitted Signatures: Dispatcher [employer] EDPerry Arizmendi MD MD cha Rittger, Kevin, MD MD kdr Hastedt, Jennifer RN RN jh6 Anita Plunkett RN RN vc1 Chaz Ventura RN RN ke1
[2021-11-07 15:17] VITALS: TEMP 98.1
[2021-11-07 15:20] VITALS: BP 173/78; O2SAT 100
== END 2021-11-07 14:53 | disposition home or self-care (01) ==
LOC: ER 04:25
DX: R10.84 Generalized abdominal pain (principal); K59.00 Constipation, unspecified; K80.20 Calculus of gallbladder without cholecystitis without obstruction; R11.10 Vomiting, unspecified; Z20.822 Contact with and (suspected) exposure to COVID-19; E11.9 Type 2 diabetes mellitus without complications; I10 Essential (primary) hypertension; E78.00 Pure hypercholesterolemia, unspecified
CPT/HCPCS: 85025; 36415; 85610; 81003; 83690; 80053; 74177; 76705; 96375; 96374; 99284; Q9967; J3010; J7030; J2405 ×2

== ENCOUNTER 2021-11-08 04:51 | Inpatient (IN) | payer BC ==
--- NOTE | 2021-11-08 05:47 | ER ---
Nurse's Notes [facility] Name: Connor Mirza Sr Age: 56 yrs Sex: Male : 1965 Arrival Date: 11/08/2021 Time: 04:53 Bed 8 Private MD: Diagnosis: Acute cholecystitis;Other cholelithiasis with obstruction;Essential (primary) hypertension;Type 2 diabetes mellitus with hyperglycemia;Epigastric abdominal tenderness Presentation: 11/08 05:10 Chief complaint: Patient states: he was seen here yesterday for abdominal pain bb diagnosed with constipation and gallstones but is still having abdominal pain and was not able to sleep last night although he did have multiple bowel movements. Coronavirus screen: At this time, the client does not indicate any symptoms associated with coronavirus-19. Ebola Screen: No symptoms or risks identified at this time. Initial Sepsis Screen: Does the patient meet any 2 criteria? No. Patient's initial sepsis screen is negative. Does the patient have a suspected source of infection? No. Patient's initial sepsis screen is negative. Risk Assessment: Do you want to hurt yourself or someone else? Patient reports no desire to harm self or others. Onset of symptoms was November 08, 2021. 05:10 Method Of Arrival: Ambulatory bb 05:10 Acuity: BINTA 3 bb Historical: - Allergies: 05:13 No Known Allergies; bb - Home Meds: 05:13 amlodipine oral [Active]; atorvastatin Oral [Active]; Levemir U-100 Insulin 100 unit/mL bb subcutaneous soln 20 unit nightly [Active]; lisinopril Oral [Active]; metformin 500 mg Oral tab 2 tabs 2 times per day [Active]; - PMHx: 05:13 diabetes mellitus; DVT; High Cholesterol; Hypertensive disorder; bb - Immunization history:: Client reports receiving the 2nd dose of the Covid vaccine, Moderna. - Social history:: Smoking status: Patient denies any tobacco usage or history of. Screenin:22 Abuse screen: Denies threats or abuse. Nutritional screening: No deficits noted. kl Tuberculosis screening: No symptoms or risk factors identified. Fall Risk None identified. Assessment: 05:21 Reassessment: Patient appears in no apparent distress at this time. Patient and/or kl family updated on plan of care and expected duration. Pain level reassessed. Patient is alert, oriented x 3, equal unlabored respirations, skin warm/dry/pink. Patient states feeling better. Patient states symptoms have improved. General: Appears. 07:00 Reassessment: RECD REPORT FROM EJ GONZALEZ. 56YO HM P/W ABDOMIANL PAIN, ADMIT FOR bp CHOLECYSTITIS. 07:15 General: Appears in no apparent distress. comfortable, Behavior is calm, cooperative, jl7 appropriate for age. Pain: Denies pain. Neuro: Braun Agitation-Sedation Scale (RASS): -1 Drowsy Level of Consciousness is awake, obeys commands, drowsy. Oriented to person, place, time, situation. Cardiovascular: Patient's skin is warm and dry. Respiratory: Airway is patent Respiratory effort is even, unlabored, Respiratory pattern is regular, symmetrical. GI: Abdomen is round non-distended, Abdomen is tender to palpation in epigastric area and right upper quadrant. Derm: Skin is pink, warm \T\ dry. 08:00 Reassessment: Pt transported to radiology via wheelchair. jl7 Vital Signs: 05:10 BP 149 / 81; Pulse 79; Resp 16 S; Temp 98.3(O); Pulse Ox 100% on R/A; Weight 88.45 kg bb (R); Height 5 ft. 6 in. (167.64 cm) (R); Pain 9/10; 05:21 BP 119 / 73; Pulse 128; Pulse Ox 99% on R/A; kl 07:00 BP 162 / 87; Pulse 66; Resp 16; Pulse Ox 97% ; bp 05:10 Body Mass Index 31.47 (88.45 kg, 167.64 cm) ED Course: 04:00 Inserted saline lock: 20 gauge in right antecubital area, using aseptic technique. kl 04:53 Patient arrived in ED. bp1 05:06 Perry Sanz MD is Attending Physician. rafael 05:13 Triage completed. bb 05:13 Gillian Lowry, CARLOS is Primary Nurse. aa9 05:13 Arm band placed on Patient placed in an exam room, on a stretcher, on pulse oximetry. bb Family accompanied patient. 05:45 Jericho Partida MD is Hospitalizing Provider. rafael 06:08 CBC with Diff Sent. kl 06:08 CMP Sent. kl 06:08 Lipase Sent. kl 06:53 Chest Single View XRAY In Process Unspecified. EDGA 07:15 Patient has correct armband on for positive identification. Bed in low position. Call jl7 light in reach. Side rails up X 1. Pulse ox on. NIBP on. Warm blanket given. 08:00 No provider procedures requiring assistance completed. Patient admitted, IV remains in jl7 place. intact, No redness/swelling at site. 08:50 Primary Nurse role handed off by Gillian Lowry RN [facility] 08:50 Alva Myers RN is Primary Nurse. jl7 Administered Medications: 06:00 Drug: Pepcid (famotidine) 20 mg Route: IVP; Site: left antecubital; kl 06:46 Follow up: Response: No adverse reaction kl 06:05 Drug: Zofran (Ondansetron) 4 mg Route: IVP; Site: left antecubital; kl 06:46 Follow up: Response: Marked relief of symptoms kl 06:05 Drug: Dilaudid (HYDROmorphone) 1 mg Route: IVP; Site: left antecubital; kl 06:46 Follow up: Response: Marked relief of symptoms kl 06:07 Drug: Zosyn (piperacillin-tazobactam) 3.375 grams Route: IVPB; Infused Over: 60 mins; Site: left antecubital; 06:46 Follow up: Response: No adverse reaction kl 07:20 Follow up: Response: No adverse reaction; IV Status: Completed infusion jl 06:08 Drug: NS 0.9% 1000 ml Route: IV; Rate: 1 bolus; Site: left antecubital; kl 07:54 Follow up: IV Status: Completed infusion; IV Intake: 1000ml bp Medication: 07:15 VIS not applicable for this client. jl Intake: 07:54 IV: 1000ml; Total: 1000ml. bp Outcome: 05:46 Decision to Hospitalize by Provider. rafael 09:11 Admitted to Med/surg accompanied by tech, family with patient, via wheelchair, room jl7 230, with chart, Report called to CARLOS Leach 09:11 Condition: stable 09:11 Discharge instructions given to patient, family, Instructed on the need for admit, Demonstrated understanding of instructions. 09:22 Patient left the ED. [facility] Signatures: Dispatcher [facility] EDMS Epifanio, Kiara, RN Perry Bower MD MD cha Ballard, Brenda, RN RN bb Alva Myers, RN RN jl7 Henry Reinoso, RN RN Liberty Rodrigez Aylin, RN RN aa9
--- NOTE | 2021-11-08 05:47 | EDPHYS ---
Physician Documentation [facility] Name: Connor Mirza Sr Age: 56 yrs Sex: Male : 1965 Arrival Date: 11/08/2021 Time: 04:53 Bed 8 Private MD: ED Physician Perry Sanz HPI: 11/08 05:42 This 56 yrs old Male presents to ER via Ambulatory with complaints of rafael Abdominal Pain. 05:42 The patient presents with abdominal pain in the epigastric area, in the upper abdomen. rafael Onset: The symptoms/episode began/occurred 1 day(s) ago. The symptoms radiate to Associated signs and symptoms: Pertinent positives: nausea and vomiting. The symptoms are described as constant, crampy. Modifying factors: The symptoms are alleviated by nothing, the symptoms are aggravated by food. Severity of pain: At its worst the pain was moderate in the emergency department the pain is unchanged. The patient has experienced similar episodes in the past, several times. Historical: - Allergies: 05:13 No Known Allergies; bb - Home Meds: 05:13 amlodipine oral [Active]; atorvastatin Oral [Active]; Levemir U-100 Insulin 100 unit/mL bb subcutaneous soln 20 unit nightly [Active]; lisinopril Oral [Active]; metformin 500 mg Oral tab 2 tabs 2 times per day [Active]; - PMHx: 05:13 diabetes mellitus; DVT; High Cholesterol; Hypertensive disorder; bb - Immunization history:: Client reports receiving the 2nd dose of the Covid vaccine, Moderna. - Social history:: Smoking status: Patient denies any tobacco usage or history of. ROS: 05:43 Constitutional: Negative for fever, chills, and weight loss, Eyes: Negative for injury, rafael pain, redness, and discharge, ENT: Negative for injury, pain, and discharge, Neck: Negative for injury, pain, and swelling, Cardiovascular: Negative for chest pain, palpitations, and edema, Respiratory: Negative for shortness of breath, cough, wheezing, and pleuritic chest pain, Back: Negative for injury and pain, : Negative for injury, bleeding, discharge, and swelling, MS/Extremity: Negative for injury and deformity, Skin: Negative for injury, rash, and discoloration, Neuro: Negative for headache, weakness, numbness, tingling, and seizure, Psych: Negative for depression, anxiety, suicide ideation, homicidal ideation, and hallucinations, Allergy/Immunology: Negative for hives, rash, and allergies, Endocrine: Negative for neck swelling, polydipsia, polyuria, polyphagia, and marked weight changes, Hematologic/Lymphatic: Negative for swollen nodes, abnormal bleeding, and unusual bruising. 05:43 Abdomen/GI: Positive for abdominal pain, nausea and vomiting, of the right upper quadrant. Exam: 05:43 Constitutional: This is a well developed, well nourished patient who is awake, alert, rafael and in no acute distress. Head/Face: Normocephalic, atraumatic. Eyes: Pupils equal round and reactive to light, extra-ocular motions intact. Lids and lashes normal. Conjunctiva and sclera are non-icteric and not injected. Cornea within normal limits. Periorbital areas with no swelling, redness, or edema. ENT: Nares patent. No nasal discharge, no septal abnormalities noted. Tympanic membranes are normal and external auditory canals are clear. Oropharynx with no redness, swelling, or masses, exudates, or evidence of obstruction, uvula midline. Mucous membranes moist. Neck: Trachea midline, no thyromegaly or masses palpated, and no cervical lymphadenopathy. Supple, full range of motion without nuchal rigidity, or vertebral point tenderness. No Meningismus. Chest/axilla: Normal chest wall appearance and motion. Nontender with no deformity. No lesions are appreciated. Cardiovascular: Regular rate and rhythm with a normal S1 and S2. No gallops, murmurs, or rubs. Normal PMI, no JVD. No pulse deficits. Respiratory: Lungs have equal breath sounds bilaterally, clear to auscultation and percussion. No rales, rhonchi or wheezes noted. No increased work of breathing, no retractions or nasal flaring. Back: No spinal tenderness. No costovertebral tenderness. Full range of motion. Male : Normal genitalia with no discharge or lesions. Skin: Warm, dry with normal turgor. Normal color with no rashes, no lesions, and no evidence of cellulitis. MS/ Extremity: Pulses equal, no cyanosis. Neurovascular intact. Full, normal range of motion. Neuro: Awake and alert, GCS 15, oriented to person, place, time, and situation. Cranial nerves II-XII grossly intact. Motor strength 5/5 in all extremities. Sensory grossly intact. Cerebellar exam normal. Normal gait. Psych: Awake, alert, with orientation to person, place and time. Behavior, mood, and affect are within normal limits. 05:43 Abdomen/GI: Inspection: abdomen appears normal, Bowel sounds: normal, Palpation: moderate abdominal tenderness, in the right upper quadrant, Liver: no appreciated palpable abnormalities, Hernia: not appreciated. 06:48 ECG was reviewed by the Attending Physician. [facility] Vital Signs: 05:10 BP 149 / 81; Pulse 79; Resp 16 S; Temp 98.3(O); Pulse Ox 100% on R/A; Weight 88.45 kg bb (R); Height 5 ft. 6 in. (167.64 cm) (R); Pain 9/10; 05:21 BP 119 / 73; Pulse 128; Pulse Ox 99% on R/A; kl 07:00 BP 162 / 87; Pulse 66; Resp 16; Pulse Ox 97% ; bp 05:10 Body Mass Index 31.47 (88.45 kg, 167.64 cm) bb MDM: 05:06 Patient medically screened. [facility] 05:49 Differential diagnosis: cholecystitis, Cholelithiasis, diverticulitis, gastritis, rafael gastroesophageal reflux disease, non-specific abd pain, pancreatitis, Peptic Ulcer Disease. Data reviewed: vital signs, nurses notes, lab test result(s), EKG, radiologic studies, CT scan, plain films, ultrasound. Data interpreted: monitor tech: rate is 128 beats/min, rhythm is regular. Test interpretation: by ED physician or midlevel provider: ECG, plain radiologic studies. Counseling: I had a detailed discussion with the patient and/or guardian regarding: the historical points, exam findings, and any diagnostic results supporting the discharge/admit diagnosis, lab results, radiology results, the need for further work-up and treatment in the hospital. 11/08 05:41 Order name: CBC with Diff; Complete Time: 07: rafael 11/08 05:41 Order name: CMP; Complete Time: 07: rafael 11/08 05:41 Order name: Lipase; Complete Time: 07: rafael 11/08 05:49 Order name: SARS-COV-2 RT PCR (Document "Date of Onset" if Symptomatic) 11/08 07:27 Order name: CBC with Automated Diff [facility] 11/08 07:27 Order name: CBC with Automated Diff [facility] 11/08 05:41 Order name: Chest Single View XRAY [facility] 11/08 07:27 Order name: Comprehensive Metabolic Panel [facility] 11/08 07:27 Order name: Comprehensive Metabolic Panel [facility] 11/08 07:28 Order name: Cholangiogram [facility] 11/08 08:25 Order name: [facility] 11/08 08:28 Order name: [facility] 11/08 05:41 Order name: IV Saline Lock; Complete Time: 06:03 [facility] 11/08 05:41 Order name: Labs collected and sent; Complete Time: 06:03 [facility] 11/08 05:41 Order name: EKG; Complete Time: 05:43 [facility] 11/08 05:41 Order name: EKG - Nurse/Tech; Complete Time: 06:33 [facility] 11/08 07:25 Order name: CONS Physician Consult [facility] 11/08 07:27 Order name: NPO ED[facility] EC:48 Rate is 71 beats/min. Rhythm is regular. QRS [place] is Normal. PA interval is normal. QRS rafael interval is normal. QT interval is normal. No Q waves. T waves are Normal. No ST changes noted. Clinical impression: NSR w/ Non-specific ST/T Changes and No evidence of ischemia. Interpreted by me. Reviewed by me. Administered Medications: 06:00 Drug: Pepcid (famotidine) 20 mg Route: IVP; Site: left antecubital; kl 06:46 Follow up: Response: No adverse reaction kl 06:05 Drug: Zofran (Ondansetron) 4 mg Route: IVP; Site: left antecubital; kl 06:46 Follow up: Response: Marked relief of symptoms kl 06:05 Drug: Dilaudid (HYDROmorphone) 1 mg Route: IVP; Site: left antecubital; kl 06:46 Follow up: Response: Marked relief of symptoms kl 06:07 Drug: Zosyn (piperacillin-tazobactam) 3.375 grams Route: IVPB; Infused Over: 60 mins; kl Site: left antecubital; 06:46 Follow up: Response: No adverse reaction kl 07:20 Follow up: Response: No adverse reaction; IV Status: Completed infusion jl7 06:08 Drug: NS 0.9% 1000 ml Route: IV; Rate: 1 bolus; Site: left antecubital; 07:54 Follow up: IV Status: Completed infusion; IV Intake: 1000ml bp Disposition Summary: 11/08/21 05:46 Hospitalization Ordered Hospitalization Status: Observation rafael Provider: Jericho Partida cha Location: Telemetry/MedSurg (observation) rafael Condition: Stable rafael Problem: new rafael Symptoms: have improved rafael Bed/Room Type: Standard rafael Room Assignment: 230(11/08/21 08:25) eb Diagnosis - Acute cholecystitis rafael - Other cholelithiasis with obstruction rafael - Essential (primary) hypertension rafael - Type 2 diabetes mellitus with hyperglycemia rafael - Epigastric abdominal tenderness rafael Forms: - Medication Reconciliation Form rafael - SBAR form rafael Signatures: Dispatcher [employer] Kiara Odom RN RN kl Anderson, Corey, MD MD cha Ballard, Brenda, RN RN Edwige Carlisle Jahala RN [id number] Peltier, Brian RN bp Corrections: (The following items were deleted from the chart) 08:25 05:46 rafael eb
[2021-11-08] MEDS ORDERED: HYDROMORPHONE HCL 1 MG/ML INJ ONE (05:54)
[2021-11-08] MEDS ORDERED: ONDANSETRON 4 MG/2 ML VIAL ONE (05:54)
[2021-11-08] MEDS ORDERED: FAMOTIDINE 20 MG/2 ML VIAL IV ONE (05:55)
[2021-11-08] MEDS ORDERED: PIPERACIL/TAZO 3.375 GM VIAL IV ONE (05:55)
[2021-11-08] MEDS ORDERED: NA CHLORIDE 0.9% 1,000 ML ONE (05:55)
[2021-11-08] MEDS ORDERED: NA CHLORIDE 0.9% 100 ML ONE (05:55)
[2021-11-08 06:30] LABS: Albumin 3.8 g/dL (3.4-5.0); Bilirubin Total 1.7 mg/dL (0.2-1.0); Protein, Total 9.1 g/dL (6.4-8.2)
[2021-11-08 06:47] LABS: Absolute Lymphocytes (CBC) 0.9 K/uL (0.7-4.9); Hematocrit 40.8 % (39.6-49.0); Lymphocytes % 6.2 % (15.3-44.8); MCV 89.2 fL (80-100); RBC Red Blood Cell Count 4.58 M/uL (4.33-5.43)
[2021-11-08] MEDS ORDERED: ONDANSETRON 4 MG/2 ML VIAL IV PRN (07:23)
--- NOTE | 2021-11-08 07:23 | RAD REPORT ---
EXAM DESCRIPTION: RAD - Chest Single View - 11/08/2021 6:52 am CLINICAL HISTORY: COUGH COMPARISON: Portable June 2009 TECHNIQUE: AP portable chest image was obtained 11/08/2021 6:52 am . FINDINGS: Lung volumes are low accentuating the baseline interstitial pattern. This could potentiall y mask minimal interstitial edema or infiltrate. There is no focal mass or consolidation. Significant failure and volume overload are not identified. Heart and vasculature are normal. No measurable pleural effusion and no pneumothorax. No acute bony abnormality seen. No acute aortic findings suspected. IMPRESSION: Limited shallow inspiration exam without acute cardiopulmonary finding.
--- NOTE | 2021-11-08 07:29 | P.HP ---
Certification for Inpatient Patient admitted to: Inpatient With expected LOS: >2 Midnights Practitioner: I am a practitioner with admitting privileges, knowledge of patient current condition, hospital course, and medical plan of care. Services: Services provided to patient in accordance with Admission requirements found in Title 42 Section 412.3 of the Code of Federal Regulations Patient History Date of Service: 11/08/21 Reason for admission: RUQ pain History of Present Illness: 56yo M, PMH: IDDM2, HTN, recent acute femoral artery occlusions s/p thrombectomy on 10/19/21 Presented to ED this morning due to ongoing RUQ / epigastric pain. Pain began ~3 days ago, comes in waves, "like cramping pain". Nothing alleviated the pain, and nothing seemed to particularly worsen it either. He has not been eating/drinking much over the last few days. Presented to ED yesterday, noted large stones in gallbladder, negative for acute cholecystitis. He was discharged home to have close follow up. In the ED today, mild leukocytosis with elevated Tbili. imaging pending. ED physician requests admission for symptomatic cholelithiasis vs acute cholecystitis. Patient and his gf also reported increased swelling and pain of his right lower extremity. Pain with ambulation over the last week. Swelling of the leg for ~1 week, but feels it has worsened in the last 2 days as well. He was seen last week for post-op follow up, sutures were removed at that time. Patient and girlfriend unable to provide further details of procedure beyond his arteries were cleaned out. Allergies No Known Michel Allergy (Uncoded 11/24/16 08:48) Unknown Home Medications: Aspirin 81 mg PO DAILY 11/08/21 Atorvastatin Calcium 40 mg PO DAILY 11/08/21 Clopidogrel Bisulfate [Plavix] 75 mg PO DAILY 11/08/21 Cyclobenzaprine HCl 10 mg PO Q8HR PRN 11/08/21 Gabapentin 300 mg PO TID 11/08/21 Indomethacin 50 mg PO Q6HR PRN 11/08/21 Insulin Detemir [Levemir Flextouch] 11/08/21 Lisinopril [Zestril] 40 mg PO DAILY 11/08/21 Metformin HCl [Glucophage] 500 mg PO BID 11/08/21 Oxycodone HCl/Acetaminophen [Endocet 5-325 Tablet] 1 each PO Q4HR PRN 11/08/21 - Past Medical/Surgical History -: IDDM2 -: HTN -: recent femoral artery thrombosis, s/p thrombectomy 10/19/21 -: 10/19/21 RLE thrombectomy - Family History Family History: Reviewed- Non-Contributory - Social History Smoking Status: Former smoker (quit 3 weeks ago) Alcohol use: No Place of Residence: Home Review of Systems 10-point ROS is otherwise unremarkable Physical Examination - Physical Exam General: Oriented x3, Mild distress HEENT: EOMI, Sclerae nonicteric Respiratory: Clear to auscultation bilaterally, Normal air movement Cardiovascular: Regular rate/rhythm, Edema (2+ RLE up to knee, none in LLE) Gastrointestinal: Tenderness (moderate-severe RUQ/Epigastrium; non-distended) Musculoskeletal: Other (tenderness to palpation of RLE posterior to knee and near surgical incision. ) Integumentary: Other (mild erythema lateral to incision; RLE: edematous, but soft; no cyanosis) Neurological: Normal speech, Normal affect - Studies Laboratory Data (last 24 hrs) 11/08/21 06:30: WBC 14.0 H, Hgb 14.2, Hct 40.8, Plt Count 208 11/08/21 05:59: Sodium 132 L, Potassium 4.0, BUN 9, Creatinine 0.93, Glucose 223 H, Total Bilirubin 1.7 H, AST 20, ALT 26, Alkaline Phosphatase 109, Lipase 31 L Assessment and Plan - Advance Directives Does patient have a Living Will: No Does patient have a Durable POA for Healthcare: No Physician Review Additional Text: Problem List RUQ pain, symptomatic cholelithiasis vs cholecystitis RLE Edema, recent thrombectomy h/o acute femoral artery thrombosis nicotine dependence - on nicotine patch HTN imaging yesterday with cholelithiasis, no gallbladder wall thickening now with Tbili more elevated and leukocytosis ED physician request admission NPO, IVF empiric antibiotics pain medication PRN General surgery - Dr. Casey consulted will attempt to get further information regarding RLE procedures for now, venous and arterial dopplers ordered, concern for re-thrombosis if he had complete thrombectomy He has not taken aspirin/plavix in ~2-3 days. Time Spent Managing Pts Care (In Minutes): 75
[2021-11-08] MEDS: INSULIN -REGULAR HUMAN 50 UNIT/0.5 ML ML SQ SCH ×4 (07:30→20:23)
--- NOTE | 2021-11-08 07:55 | EKG ---
Test Date: 2021-11-08 Test Time: 06:21:04 Probate Clerk: LUZ MEASUREMENT RESULTS: Intervals: Rate: 71 SD: 124 QRSD: 80 QT: 410 QTc: 445 [place]: P: 42 SD: 124 QRS: 56 T: 39 INTERPRETIVE STATEMENTS: Normal sinus rhythm Cannot rule out Anterior infarct, age undetermined Abnormal ECG Compared to ECG 06/17/2009 19:40:43 Myocardial infarct finding now present Sinus bradycardia no longer present Electronically Signed On 11-08-21 07:54:54 CDT by Raymond Moser
--- NOTE | 2021-11-08 08:25 | RAD REPORT ---
EXAM DESCRIPTION: US - Lower Extremity Artery Uni Ltd - 11/08/2021 7:53 am CLINICAL HISTORY: RLE swelling; s/p femoral artery clot excision COMPARISON: Lower Extremity Artery Uni Ltd dated 10/18/2021 TECHNIQUE: Doppler evaluation of the right lower extremity arterial tree performed. Waveforms and ve locity values were obtained along with visual inspection. FINDINGS: Monophasic or very minimally biphasic waveform patterns are seen in the right common femor al and proximal superficial femoral arteries. The mid and distal superficial femoral artery portions are occluded.The is occlusion of the mid superficial femoral artery on today's study may indicate pro pagation of a prior occlusion. Provided history indicates arterial clot excision. Bypass changes are evident. This is presumed to allen ve been an endovascular procedure. Blood flow was restored to the right popliteal artery likely from collateralized vessels at the adduc tor canal. A monophasic waveform pattern is seen. Velocity is 55 cm/second at its peak. Monophasic posterior tibial artery waveforms seen with 16 cm/second peak velocity. Dorsalis pedis 27 cm peak velocity measured with monophasic waveform pattern. 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 Monophasic waveforms are seen in the common femoral, proximal superficial femoral, popliteal, dorsali s pedis and posterior tibial arteries.
--- NOTE | 2021-11-08 08:28 | RAD REPORT ---
EXAM DESCRIPTION: US - Extremity Venous Uni Ltd - 11/08/2021 7:53 am CLINICAL HISTORY: RLE swelling; s/p femoral artery clot excision COMPARISON: None. TECHNIQUE: Real-time sonographic evaluation of the right lower extremity deep venous systems was per formed. FINDINGS: Normal compressibility, flow augmentation, phasic flow and spontaneous flow are identified in the right lower extremity common femoral, superficial femoral, popliteal and posterior tibial vei ns. No intraluminal filling defects seen. IMPRESSION: No DVT in the right lower extremity.
[2021-11-08] MEDS: PIPER TAZO 3.375 GM in NA CHLORIDE 0.9% 100 ML IV SCH ×2 (09:00→16:01)
[2021-11-08] MEDS ORDERED: ENOXAPARIN 40 MG/0.4 ML SQ SCH (09:00)
--- NOTE | 2021-11-08 09:08 | RAD REPORT ---
EXAM DESCRIPTION: MRI - Cholangiogram - 11/08/2021 8:57 am CLINICAL HISTORY: Right upper quadrant abdominal pain, abnormal ultrasound, abnormal CT COMPARISON: Gallbladder ultrasound 11/07/2021, CT study 11/07/2021 TECHNIQUE: Axial and coronal heavily T2 weighted sequences were obtained. Coronal T2 HASTE fat satur ation static and coronal multiplane reconstruction imaging generated and reviewed. Horizontal and prudence tical axis rotational views obtained using maximum intensity projection (MIP) protocol. FINDINGS: Gallbladder is again seen to be distended but nondilated. Gallbladder fundal gallstone is again identified. This measures 3.5 cm on today's study. There is another gallstone fixed near the ne ck of the gallbladder. This measures 2.5 cm. Gallbladder wall does not appear edematous on this study . No intrahepatic or extrahepatic biliary tree dilatation. Common bile duct is approximately 6 mm. No d uct stone, stricture, mass or other suspicious finding seen. Pancreatic duct unremarkable. IMPRESSION: Gallbladder fundus and gallbladder neck gallstones are again identified matching the CT and ultrasound findings. Negative evaluation of the biliary tree.
[2021-11-08] MEDS: NA CHLORIDE 0.9% 1,000 ML IV SCH ×2 (09:35→20:07)
[2021-11-08 09:57] VITALS: BMI 31.4
[2021-11-08] MEDS: HYDROMORPHONE HCL 1 MG/ML INJ IV PRN ×4 (10:51→23:59)
[2021-11-08] MEDS ORDERED: ACETAMINOPHEN 325 MG TABLET PO PRN (16:03)
[2021-11-09] MEDS: PIPER TAZO 3.375 GM in NA CHLORIDE 0.9% 100 ML IV SCH ×2 (00:11→08:33)
[2021-11-09] MEDS: HYDROMORPHONE HCL 1 MG/ML INJ IV PRN ×3 (03:54→12:27)
[2021-11-09 04:05] LABS: Absolute Lymphocytes (CBC) 1.5 K/uL (0.7-4.9); Hematocrit 38.4 % (39.6-49.0); Lymphocytes % 12.9 % (15.3-44.8); MCV 89.9 fL (80-100); MPV 9.1 fL (7.6-11.3); RBC Red Blood Cell Count 4.27 M/uL (4.33-5.43)
[2021-11-09 04:14] LABS: Albumin 2.6 g/dL (3.4-5.0); Bilirubin Total 1.1 mg/dL (0.2-1.0); Potassium 3.6 mmol/L (3.5-5.1); Protein, Total 6.5 g/dL (6.4-8.2)
[2021-11-09] MEDS: NA CHLORIDE 0.9% 1,000 ML IV SCH (05:14)
[2021-11-09 05:30] LABS: Magnesium 1.8 mg/dL (1.8-2.4)
[2021-11-09] MEDS: INSULIN -REGULAR HUMAN 50 UNIT/0.5 ML ML SQ SCH ×2 (07:30→11:30)
[2021-11-09 08:48] VITALS: O2SAT 96
--- NOTE | 2021-11-09 08:57 | P.DS ---
Admission Date: 11/08/21 Discharge Date: 11/09/21 Disposition: TRANSFER TO GENERAL HOSPITAL Comment: [facility] Discharge Condition: GOOD Reason for Admission: RUQ pain Consultations: 1. General Surgery - Problems (1) Acute cholecystitis Current Visit: Yes Status: Acute (2) Superficial femoral artery occlusion Current Visit: Yes Status: Acute Hospital Course: Mr. Connor Mirza is a pleasant 56 year old male with a past medical history significant for type 2 diabetes mellitus, hypertension, and recent acute superficial femoral artery occlusion s/p thrombectomy by Dr. Jennifer Wiggins (10/19/2021) who was admitted to the [facility] on 11/08/2021 for concerns of acute cholecystitis vs symptomatic cholelithiasis. Upon evaluation, his vital signs were notable for a temperature of 100.8 F. His laboratory studies were notable for a WBC count of 14,000 and a total bilirubin of 1.7, but LFTs were within normal limits. Chest x-ray report, revealed "limited shallow inspiration exam without acute cardiopulmonary finding." MRCP revealed, "gallbladder fundus and gallbladder neck gallstones are again identified matching the CT and ultrasound findings. Negative evaluation of the biliary tree." Right lower extremity Doppler revealed, "persistent or recurrent occlusion of the mid and distal portions of the right femoral artery. Monophasic waveforms are seen in the common femoral, proximal superficial femoral, popliteal, dorsalis pedis and posterior tibial arteries." Right lower extremity venous Doppler revealed, "no DVT in the right lower extremity." General Surgery was consulted for a cholecystectomy, but did not feel comfortable operating with his known right SFA thrombosis. It was recommended that he be transferred to a facility, which has Vascular Surgery available. Dr. Partida was able to speak with Dr. Wiggins, and it was recommended that he be transferred to a facility where Dr. Wiggins has privileges. A doc-to-doc was completed with General Surgeon (Dr. Mono Torres) at [facility], who accepted consultation. A doc-to-doc was then completed with hospitalist (Dr. Syd Mitchell), who generously accepted him for transfer. He will be transferred to [facility] for higher level of care. He was given the opportunity to ask questions and reported no further questions. Furthermore, all questions were answered to the best of my ability. Today, I personally spent 40 minutes on his case, of which greater than 50% of the time was spent in patient education, counseling, and coordination of care as described above. Vital Signs/Physical Exam: Temp Pulse Resp BP Pulse Ox 97.5 F 76 14 161/81 H 97 11/09/21 08:00 11/09/21 08:00 11/09/21 08:00 11/09/21 08:00 11/09/21 08:00 General: Alert, Oriented x3, Mild distress HEENT: Atraumatic, Mucous membr. moist/pink Neck: Supple, Without JVD or thyroid abnormality Respiratory: Clear to auscultation bilaterally, Normal air movement Cardiovascular: No edema, Regular rate/rhythm, Normal S1 S2, No gallops, No rubs, No murmurs Gastrointestinal: Normal bowel sounds, Tenderness (RUQ tenderness. Davila sign positive), Rebound, Guarding Musculoskeletal: No clubbing, No swelling Integumentary: No rashes Neurological: Normal speech, Normal tone, Normal affect Laboratory Data at Discharge: WBC 11.9 K/uL (4.3-10.9) H D 11/09/21 03:09 Hgb 13.3 g/dL (13.6-17.9) L 11/09/21 03:09 Hct 38.4 % (39.6-49.0) L 11/09/21 03:09 Plt Count 190 K/uL (152-406) 11/09/21 03:09 Sodium 135 mmol/L (136-145) L 11/09/21 03:09 Potassium 3.6 mmol/L (3.5-5.1) 11/09/21 03:09 BUN 11 mg/dL (7-18) 11/09/21 03:09 Creatinine 0.68 mg/dL (0.55-1.3) 11/09/21 03:09 Glucose 145 mg/dL (74-106) H 11/09/21 03:09 Magnesium Cancelled 11/09/21 05:19 Total Bilirubin 1.1 mg/dL (0.2-1.0) H 11/09/21 03:09 AST 9 U/L (15-37) L 11/09/21 03:09 ALT 20 U/L (12-78) 11/09/21 03:09 Alkaline Phosphatase 79 U/L (45-117) 11/09/21 03:09 Lipase 31 U/L (73-393) L 11/08/21 05:59 Home Medications: Aspirin 81 mg PO DAILY 11/08/21 Atorvastatin Calcium 40 mg PO DAILY 11/08/21 Clopidogrel Bisulfate [Plavix] 75 mg PO DAILY 11/08/21 Cyclobenzaprine HCl 10 mg PO Q8HR PRN 11/08/21 Gabapentin 300 mg PO TID 11/08/21 Indomethacin 50 mg PO Q6HR PRN 11/08/21 Insulin Detemir [Levemir Flextouch] 11/08/21 Lisinopril [Zestril] 40 mg PO DAILY 11/08/21 Metformin HCl [Glucophage] 500 mg PO BID 11/08/21 Oxycodone HCl/Acetaminophen [Endocet 5-325 Tablet] 1 each PO Q4HR PRN 11/08/21 Diet: NPO Activity: Bedrest Followup: NONE,NONE [Primary Care Provider] - Physician Review: Patient Assessed, Agree with Above Assessment and Plan
[2021-11-09] MEDS ORDERED: KCL 20 MEQ/100 mL IVPB 20 MEQ/100 ML BAG IV SCH (09:00)
[2021-11-09] MEDS ORDERED: MAGNESIUM SULFATE 1 gm IVPB 1 GM/100 ML BAG IV ONE (09:00)
--- NOTE | 2021-11-09 10:41 | CON ---
Date of Consultation: 11/08/2021 History Of Present Illness: This is the case of a 56-year-old person with 2 problems. He came to [facility] ER complaining of leg pain, also complaining of abdominal pain. He was seen apparently on November 07 , sent home, came back few hours later, diagnosed with acute cholecystitis. There was extensive work up done also on the lower extremity since the patient has recent vascular studies that show they are occluded. The patient was admitted to the hospital with acute cholecystitis and a surgical consult w as obtained, but to the hospitalist. There is a second significant problem going on at e same time that we cannot forget about it, which is his occlusion of the femoral arteries. The sesar ent states that was done several weeks ago. He saw the vascular surgeon a few days ago and everythin g was looking good. He stopped taking his blood thinners several days ago and noticed that his leg w as changing. When he came to the ER, apparently they did some workup on that area, but then he was a dmitted with just cholecystitis and once again, it is important that we analyzed the 2 problems at [facility] same time. The right upper quadrant pain is on and off. At this time did not get better. He was eating some greasy food over the weekend. There is no dysuria, hematuria, hematochezia, or melena. There is no recent traveling out of the country. No family member sick at home. During the ER, the patient had a series of studies including MRCPs, studies of the lower extremities including arterial Doppler including venous Dopplers. Past medical history includes peripheral vascular disease with re cent vascular study. We do not know the details of it, but he has incisions still healing from the l ower extremities. Allergies: NONE. Medications: Aspirin and Plavix, although he is not taking them. Indomethacin, insulin, lisinopril, metformin, oxycodone. Past Medical History: Includes peripheral vascular disease. Insulin-dependent diabetes, hypertensio n, femoral artery thrombosis, thrombectomy, and reocclusion. Family History: Noncontributory. Social History: The patient smoked, quit several weeks ago. He drinks alcohol just occasionally breanne t is for social. Past Surgical History: Just a few weeks ago has thrombectomies, incisions on the thighs, incisions o n the lower extremities. Still healing. Review of Systems: The patient stated nausea, no vomiting, abdominal pain, but also states right lower extremity pain, e specially in the lower side with swelling. No fever. No dysuria. No hematochezia. No melena. See H and P. Physical Examination: General: The patient is awake, alert. HEENT: Pupils are equal and reactive. Anicteric. Neck: Supple. Chest: Clear. Abdomen: Epigastric right upper quadrant tenderness. No rebound. Rectal: Deferred. Extremities: On the right lower extremity, the patient has swelling of the entire extremity. There are incisions present. There is a lack of significant pulses on the foot area. There is no cyanosis . There is capillary refill present. There are fresh incisions made on that area with no evidence o f cellulitis. There is sensation present through the entire extremity, although it is exacerbated by pain. Neuro: Cranial nerves 2 through 12 grossly within normal limits. Once again limited on the right lo wer extremity due to increased pain. Laboratory Data: Blood work; WBC count is 14 with hemoglobin of 14.2 and platelets of 208. Sodium i s 132, chloride is 97. Bicarb is 29. Total bilirubin of 1.7, AST 20, ALT 26, alkaline phosphatase 1 09, lipase 31. Apparently, the patient has an abdominal ultrasound, at that moment was re ad as gallstones, gallbladder is distended, moderate amount of sludge, gallbladder wall upper limits of normal thickness. On the same day 11/07 at 5 o'clock in the morning, the patient had a large amou nt of stool in the colon. There is circumferential narrowing 2.5 cm at the colon in the splenic flex ure, etiology of that is unknown. Gallstones present and distended gallbladder. Apparently on the C AT scan, they did not see any wall thickening or pericholecystic fluid. Fatty liver, all those discu ssed with the patient. The patient went home on 11/08 that we have a new findings. At that moment a lso in 7 o'clock in the morning, the person has an MRCP that shows gallbladder fullness and gallbladd er next gallstones identified again compared with the previous CT scan. On this study, the gallbladd er does not appear to be edematous. No intrahepatic or extrahepatic biliary tree dilatation, common bile duct is about 6 mm with no stones, strictures seen in that area. The patient also had a Doppler study of the lower extremity showing persistent or recurrent occlusion of the mid and distal portion of the right femoral artery. Monophasic waveform is seen in the common femoral, proximal superficia l femoral, popliteal, dorsalis pedis and posterior tibialis arteries. The patient has a venous Doppl er done also of the same extremities that shows no DVT in the right lower extremities. Assessment: A 56-year-old patient, who comes to us with 2 problems. I see on the result on the offi cial paper of the hospital all the mentioned in the gallbladder, but this patient also has another is justin. We do not know much about his recent vascular studies and the recent changes in that leg since the patient states there is change in the last few days. There is an occlusion that we can see and w e do not know that it is all new and the radiologist cannot rule out. The gallbladder at this moment at least on the imaging did not show any pericholecystic fluid or any gallbladder edema, so the ques tion will remain as which of the 2 problems are the most significant of life threatening. In the galen e of the gallbladder, we have the patient n.p.o., give him some antibiotics and we can treat that in this institution, but the right lower extremity that we do not have vascular surgeons in this institu tion and that is what I explained to the hospitalist that this is an active problem. They have to fi nd out the vascular surgeon in [place], so we can discuss the case with him because we do not want to see here him in a life-threatening and the limb threatening condition. at this moment, t his patient should be evaluated by Vascular Surgery there at least they can do the gallbladder and do both of them here to the floor, but I believe this [facility] 2 issues since we cannot address his current thrombosis of the femoral artery that in some occasions may be limb threatening. In that case, we will see at that moment that the gallbladder is an issue, but the Vascular Service to take priority, then at least they have options also percutaneous drainage in case that 2 of them cannot be addressed at the same time. DAVID/ABDOULAYE Voice ID: [id number] Report ID: [id number]
[2021-11-09 12:07] VITALS: BP 158/87; TEMP 97.1
--- NOTE | 2021-11-09 15:26 | RAD REPORT ---
EXAM DESCRIPTION: CT - Lower Ext Angio - 11/09/2021 6:35 am ADDENDUM #1 THIS REPORT CONTAINS FINDINGS THAT MAY BE CRITICAL TO PATIENT CARE: The findings were communicated via telephone conference with HAROON Box on 11/09/2021 12: 52 AM CDT. The re sults were acknowledged and understood. Electronically signed by: Sammy Gaming MD 11/09/2021 8:04 AM CDT End of Addendum EXAM DESCRIPTION: CTA Abdomen and Pelvis with Lower Extremity Runoff COMPARISON: None. CLINICAL HISTORY: [facility] Arterial occlusion RLE TECHNIQUE: CTA of the right lower extremities was acquired with IV contrast material. Coronal and sa gittal reconstructions were obtained. MIPS reformats are provided. Automated exposure control was uti lized on this examination as a dose lowering technique. FINDINGS: CTA FINDINGS: Right lower extremity: There is occlusion of the superficial femoral artery and proximal popliteal ar dimas. External iliac, common femoral, anterior tibial, peroneal, and posterior tibial arteries demons trate no significant stenoses, dissections, or aneurysms. NONVASCULAR FINDINGS: GI tract: Visualized portions are unremarkable. Peritoneal cavity: Trace pelvic fluid. Musculoskeletal and soft tissues: A nonaggressive cystic lesion is present in the calcaneus with fat attenuation, consistent with lipoma. No compression fracture. Urinary bladder: Normal. Prostate/Male Urogenital: Normal. IMPRESSION: Occlusion of the right superficial femoral artery and proximal popliteal artery. Electronically signed by: Sammy Gaming MD 11/09/2021 12:40 AM CDT Due to temporary technical issues with the PACS/Fluency reporting system, reports are being signed by the in house radiologists without review as a courtesy to insure prompt reporting. The interpreting radiologist is fully responsible for the content of the report.
--- OUTSIDE RECORDS SUMMARY | 2021-11-23 12:22 | XMS REPORT | Continuity of Care Document ---
:1965 Author Organization [facility] t Address [address] [place] [address] Care Team Providers Name Role Phone Syd Mitchell Attending Clinician Unavailable Benita Prakash Attending Clinician Unavailable Syd Mitchell Admitting Clinician Unavailable Benita Prakash Admitting Clinician Unavailable Payers Payer Name Policy Type Policy Number Effective Date Expiration Date S ource Problems This patient has no known problems. Allergies, Adverse Reactions, Alerts Allergy Allergy Status Severity Reaction(s) Onset Inactive Treating Comm ents Source Name Type Date Date Clinician No Known DA Active U [facility] 06 [place] [facility] 00:00: [facility] 00 [facility] No Known DA Active U [facility] Allergie 10-18 [place] s 00:00: [address] Medications This patient has no known medications. Procedures Procedure Date / Time Performed Performing Clinician Sourc e [id number] 2021-11-11 00:00:00 ZAFNA.01 [facility] [id number] 2021-11-11 00:00:00 ZAFNA.01 [facility] [id number] 2021-11-09 00:00:00 ZAFNA.01 [facility] [id number] 2021-10-19 00:00:00 [facility] [id number] 2021-10-19 00:00:00 MALRE [facility] [id number] 2021-10-19 00:00:00 MALAMINATA GUZMAN [facility] Encounters Start End Encounter Admission Attending Care Care Encounter Source Date/Time Date/Time Type Type Clinicians Facility Department ID 2021-11-09 2021-11-14 Inpatient SAURAV Mitchell [facility] ADMI [id number] [facility] 14:49:00 13:32:00 Syd 59 [facility] are [facility] 2021-11-09 2021-11-14 Inpatient SAURAV Mitchell [facility] AD[facility] [id number] [facility] 14:49:00 13:32:00 Syd [id number] [facility] are [facility] 2021-11-12 2021-11-12 Outpatient THOMAS MitchellNW REF [id number] [facility] 07:38:00 07:38:00 Syd 56 [facility] are [facility] 2021-10-18 2021-10-21 Inpatient EM JAMAL PrakashU TELE [id number] [facility] 21:19:00 18:50:00 Benita [id number] [facility] 2021-10-18 2021-10-21 Inpatient EM THOMAS PrakashWU TELE [id number] [facility] 21:19:00 18:50:00 Benita 90 [facility] Results Test Description Test Time Test Comments Results Result Comments Source SURGICAL 2021-11-16 15:23:00 Test Item Value Reference Range Interpretation Comme nts SURGICAL RUN DATE: (test 11/16/21 [facility] - LAB PAGE 1 RUN TIME: 1524 code = Specimen Inquiry RUN USER: INTERFACE SR) PATIENT: LOYDA ELLSWORTH LOC: HamS SHERLYN [place] U #: [id number] AGE/SX: 56/ M ROOM: [facility] RE11/09/21REG DR: Syd Mitchell MD : 61 BED: 1 DIS: 11/14/21 STATUS: DIS IN TLOC: SPEC #: [id number] RECD: STATUS: DESHAWN REQ #: [id number] CHIP: 11/11/[address]: Syd Mitchell MD ENTERED: 11/14/21 SP TYPE: SURGICAL OTHR DR: Jennifer Wiggins MD, Raju-Madhav M DO Zafar, Naveed MDORDERED: [id number], ANATOMIC SPEC HISTOLOGY: TISSUE ID BLK PCS JOSE LEV / PROCEDURE DISPOSITION ____ ___ ___ ___ ___ GALB A 1 1 TISSUES: A. GALLBLADDER - Gallbladder FINAL DIAGNOSIS GALLBLADDER, CHOLECYSTECTOMY : Lithiasis (myxed-type stones). Severe acute hemorrhagic cholecystitis. GROSS DESCRIPTION Received in formalin, labeled with the patient's name, date of and designatedspecimen A "gallbladder". It consists of a previously sectioned gallbladder specimen thatmeasures 12.5 c m in total length with a maximum diameter of 4.3 cm. There are multiplepunctures on the ser joi. The serosa is lee brown with multiple adhesions and theadventitia is lee and rough. Floating in the formalin are two black smooth oval calculimeasuring 2.3 x 1.7 x 1.7 cm and 4 x 2.4 x 2.3 cm. The m ucosa is lee brown and wrinkled. The specimen has a wall thickness that ranges from 0.2 to 0.6 cm. Sections through thewall shows signs of hemorrhage and necrosis. The specimen is submitted repres entatively cora single cassette. JA/shefali Technical component performed at [facility] [address] [facility], [facility], [address] Unless gross only, the diagnosis is based upon micr oscopic examination.Immunohistochemistry: This test was developed and its performancecharacteristics d etermined by this laboratory. It has not been approved nordoes it need approval by the US FDA. Appr opriate positive and negative controlsare reviewed and judged to be acceptable. This laboratory is certified undert Clinical Laboratory Improvement Amendments (CLIA-88) as qualified toperform high complexity clinical laboratory testing. CONTINUED ON NEXT PAGE RUN DATE: 11/16/21 [place] [facility] - LAB PAGE 2 RUN TIME: 1524 Specimen Inquiry RUN USER: INTERFACE SPEC #: [id number] PATIENT: LOYDA ELLSWORTH #[id number] (Continued) MICROSCOPIC DESCRIPTION Performed. CLINICAL INFORMATION Gallstones Signed SIGNATURE ON FILE Geraldo Todd 11/16/21 1523 END OF REPORT [id number] 07:26:00 Test Item Value Reference Range Interpretation Comments GLUBED (test code = GLUBED) 138 MG/DL 70-105 H [id number] 17:22:00 Test Item Value Reference Range Interpretation Comments GLUBED (test code = GLUBED) 173 MG/DL 70-105 H [id number] 15:30:00 Test Item Value Reference Range Interpretation Comments TROPONIN-I (test 2.7 pg/mL 38.73-80.22 L Please note : Units and code = TROPI) Reference Rang e have changedFeb 3, 2 021 - XR CHEST 2 [id number] 14:02:00 [facility] : 1965 Sex: MPatient Name: LOYDA ELLSWORTH Unit No: [id number] EXAMS: CPT CODE: [id number] XR CHEST 2 V 04278 Chest one view AP 11/12/2021 2:01 PM CLINICAL INDICATION: Shortness of breath COMPARISON: None available LOCATION: W1 IMPRESSION: The lungs are hypoinflated. Bilateral interstitial opacities suggest atelectasis. Pneumonia should be excluded clinically. Cardiomediastinal contours are within normal limits. There is central pulmonary vasculature congestion without remarkable peripheral edema. The visualized skeleton is intact. at 1402 Reported and signed by: TREVON MONK M.D. CC: Pierre ENRIQUE Technologist: Donny Lopez Time: DAP (Gy m2): Air Kerma (mGy): Trscr Dt/Tm: 11/12/2021 (1402) by:[email or web address] Printed Date/Time: 11/12/2021 (6225) Name: LOYDA ELLSWORTH [facility] Phys: Syd Morocho MD [address] : 1965 Age: 56 Sex: [place] [address] Loc: P.0725 1 Exam Date: 11/12/2021 Status: ADM IN PH: FAX: PAGE 1 Signed [id number] 07:56:00 Test Item Value Reference Range Interpretation Comments GLUBED (test code = GLUBED) 170 MG/DL 70-105 H - XR FLUOROSCOPY 0-60 [id number] 07:18:00 [facility] 1965 Sex: MPatient Name: LOYDA ELLSWORTH Unit No: [id number] EXAMS: CPT CODE: [id number] XR FLUOROSCOPY 0-60 MIN 08613 Fluoroscopy 3 views intraoperative 11/11/2021 CLINICAL HISTORY: Instrument localization COMPARISON: None available LOCATION: W1 IMPRESSION: Please correlate imaging report findings with the procedure note prepared by Dr. Torres, as an intra-procedure imaging consultation was not requested. Reported fluoroscopy time: 4.4 seconds. at 0718 Reported and signed by: TREVON MONK M.D. CC: Syd Mitchell MD Technologist: Donny Lopez Time: DAP (Gy m2): Air Kerma (mGy): Trscr Dt/Tm: 11/12/2021 (07) by:[email or web address] Printed Date/Time: 11/12/2021 (07) Name: LOYDA ELLSWORTH [facility] Phys: Syd Morocho MD [address] : 1965 Age: 56 Sex: [place] [address] Loc: P.0725 1 Exam Date: 11/11/2021 Status: ADM IN PH: FAX: PAGE 1 Signed ReportBASIC METABOLIC [id number] 07:00:00 Test Item Value Reference Range Interpretation Comments SODIUM (test code 136 mmol/L 136-145 N Please not e: New = NA) Reference Range Jun 2020 POTASSIUM (test 3.6 mmol/L 3.5-5.1 N code = K) CHLORIDE (test 100 mmol/L 98-107 N Please note: New code = CL) Reference Range Jun 2020 CARBON DIOXIDE 30 mmol/L 20-31 N Please note: New (test code = CO2) Reference Range Jun 2020 GLUCOSE (test code 128 mg/dL 74-106 H Please no te: New = GLU) Reference Range Jun 2020 BLOOD UREA 9 mg/dL 9-23 N Please note: Ne w NITROGEN (test Reference Ran ge Feb code = BUN) 2020 GLOMERULAR >=60 max >60 Units are FILTRATION RATE estimate mL/min mL/min/1. 73m2 The (test code = GFR) estimated glomerular filtration rate is computed usingpatient ra ce, age (>18), sex, and serum creatinin e. If anyof the neede d data elements a re missing the Laboratory evangelina ot compute an estimation of t he glomerular filtration rate . CREATININE (test 0.60 mg/dL 0.70-1.30 L Please note : New code = CREAT) Reference Rang e Jun 2020 CALCIUM (test code 7.7 mg/dL 8.7-10.4 L Please no te: New = CA) Reference Range Jun 2020 [id number] 07:00:00 Test Item Value Reference Range Interpretation Comments PHOSPHOROUS (test code 3.4 mg/dL 2.4-5.1 N Pleas e note: New = PHOS) Reference Range Jun 2020 [id number] 07:00:00 Test Item Value Reference Range Interpretation Comments MAGNESIUM (test code = 1.7 mg/dL 1.6-2.6 N Pleas e note: New MAG) Reference Range Jun 2020 CBC W/AUTO [id number] 06:48:00 Test Item Value Reference Range Interpretation Comments WHITE BLOOD CELL (test code = 9.4 x10 3/uL 4.8-10.8 N WBC) RED BLOOD CELL (test code = 4.68 x10 6/uL 4.70-6.10 L RBC) HEMOGLOBIN (test code = HGB) 14.2 g/dL 14.0-18.0 N HEMATOCRIT (test code = HCT) 40.8 % 42.0-52.0 L MEAN CELL VOLUME (test code = 87.2 fL 80.0-94.0 N MCV) MEAN CELL HGB (test code = MCH) 30.3 pg 27-31 N MEAN CELL HGB CONCENTRATION 34.8 G/DL 33-36.5 N (test code = MCHC) RED CELL DISTRIBUTION WIDTH 12.5 % 12.9-16.9 L (test code = RDW) PLATELET COUNT (test code = 235 x10 3/uL 150-440 N PLT) MEAN PLATELET VOLUME (test code 10.6 fL 8.9-12.4 N = MPV) NEUTROPHIL % (test code = NT%) 75.0 % 42.2-75.2 N LYMPHOCYTE % (test code = LY%) 11.3 % 20.5-51.1 L MONOCYTE % (test code = MO%) 10.5 % 1.7-9.3 H EOSINOPHIL % (test code = EO%) 2.7 % 0.0-7.0 N BASOPHIL % (test code = BA%) 0.1 % 0-2.5 N NEUTROPHIL # (test code = NT#) 7.07 x10 3/uL 1.80-7.70 N LYMPHOCYTE # (test code = LY#) 1.07 x10 3/uL 1.00-4.80 N MONOCYTE # (test code = MO#) 0.99 x10 3/uL 0.00-0.80 H EOSINOPHIL # (test code = EO#) 0.25 x10 3/uL 0.00-0.45 N BASOPHIL # (test code = BA#) 0.01 x10 3/uL 0.0-0.20 N [id number] 21:47:00 Test Item Value Reference Range Interpretation Comments GLUBED (test code = GLUBED) 155 MG/DL 70-105 H [id number] 19:45:00 Test Item Value Reference Range Interpretation Comments GLUBED (test code = GLUBED) 137 MG/DL 70-105 H [id number] 16:12:00 Test Item Value Reference Range Interpretation Comments GLUBED (test code = GLUBED) 121 MG/DL 70-105 H [id number] 11:23:00 Test Item Value Reference Range Interpretation Comments GLUBED (test code = GLUBED) 128 MG/DL 70-105 H [id number] 07:34:00 Test Item Value Reference Range Interpretation Comments GLUBED (test code = GLUBED) 119 MG/DL 70-105 H [id number] 16:19:00 Test Item Value Reference Range Interpretation Comments GLUBED (test code = GLUBED) 95 MG/DL 70-105 N [id number] 11:47:00 Test Item Value Reference Range Interpretation Comments GLUBED (test code = GLUBED) 109 MG/DL 70-105 H [id number] 22:43:00 Test Item Value Reference Range Interpretation Comments GLUBED (test code = GLUBED) 115 MG/DL 70-105 H [id number] 19:16:00 Test Item Value Reference Range Interpretation Comments MAGNESIUM (test code = 1.8 mg/dL 1.6-2.6 N Pleas e note: New MAG) Reference Range Jun 2020 BASIC METABOLIC [id number] 19:16:00 Test Item Value Reference Range Interpretation Comments SODIUM (test code 135 mmol/L 136-145 L Please not e: New = NA) Reference Range Jun 2020 POTASSIUM (test 3.6 mmol/L 3.5-5.1 N code = K) CHLORIDE (test 102 mmol/L 98-107 N Please note: New code = CL) Reference Range Jun 2020 CARBON DIOXIDE 26 mmol/L 20-31 N Please note: New (test code = CO2) Reference Range Jun 2020 GLUCOSE (test code 104 mg/dL 74-106 N Please no te: New = GLU) Reference Range Jun 2020 BLOOD UREA 10 mg/dL 9-23 N Please note: Ne w NITROGEN (test Reference Ran ge Feb code = BUN) 2020 GLOMERULAR >=60 max >60 Units are FILTRATION RATE estimate mL/min mL/min/1. 73m2 The (test code = GFR) estimated glomerular filtration rate is computed usingpatient ra ce, age (>18), sex, and serum creatinin e. If anyof the neede d data elements a re missing the Laboratory evangelina ot compute an estimation of t he glomerular filtration rate . CREATININE (test 0.60 mg/dL 0.70-1.30 L Please note : New code = CREAT) Reference Rang e Jun 2020 CALCIUM (test code 8.0 mg/dL 8.7-10.4 L Please no te: New = CA) Reference Range Jun 2020 CBC W/AUTO [id number] 19:03:00 Test Item Value Reference Range Interpretation Comments WHITE BLOOD CELL (test code = 13.2 x10 3/uL 4.8-10.8 H WBC) RED BLOOD CELL (test code = 4.31 x10 6/uL 4.70-6.10 L RBC) HEMOGLOBIN (test code = HGB) 13.3 g/dL 14.0-18.0 L HEMATOCRIT (test code = HCT) 37.3 % 42.0-52.0 L MEAN CELL VOLUME (test code = 86.5 fL 80.0-94.0 N MCV) MEAN CELL HGB (test code = MCH) 30.9 pg 27-31 N MEAN CELL HGB CONCENTRATION 35.7 G/DL 33-36.5 N (test code = MCHC) RED CELL DISTRIBUTION WIDTH 12.4 % 12.9-16.9 L (test code = RDW) PLATELET COUNT (test code = 215 x10 3/uL 150-440 N PLT) MEAN PLATELET VOLUME (test code 11.2 fL 8.9-12.4 N = MPV) NEUTROPHIL % (test code = NT%) 75.9 % 42.2-75.2 H LYMPHOCYTE % (test code = LY%) 11.1 % 20.5-51.1 L MONOCYTE % (test code = MO%) 11.2 % 1.7-9.3 H EOSINOPHIL % (test code = EO%) 1.1 % 0.0-7.0 N BASOPHIL % (test code = BA%) 0.2 % 0-2.5 N NEUTROPHIL # (test code = NT#) 9.98 x10 3/uL 1.80-7.70 H LYMPHOCYTE # (test code = LY#) 1.46 x10 3/uL 1.00-4.80 N MONOCYTE # (test code = MO#) 1.47 x10 3/uL 0.00-0.80 H EOSINOPHIL # (test code = EO#) 0.15 x10 3/uL 0.00-0.45 N BASOPHIL # (test code = BA#) 0.03 x10 3/uL 0.0-0.20 N LIPID PROFILE (CORONARY RISK)2021-10-21 16:38:00 Test Item Value Reference Range Interpretation Comments TRIGLYCERIDES (test 39 MG/DL 150-199 L TRIGLYCE RIDES code = TRIG) REFERENCE RANGE:Normal: < 150 mg/dLBorderline High: 150-199 mg/dLHi gh: 200-499 mg/dLVe ry High: >=500 mg/ dL CHOLESTEROL (test code 76 MG/DL <200 = CHOL) HDL CHOLESTEROL (test 27 MG/DL 40-59 L code = HDL) LIPOPROTEIN LDL (test 40 MG/DL 0-99 N code = LDL) OPTIMAL........ .<100 mg/dLNEAR OPTIMAL/ABOVE OPTIMAL........ .100-12 9 mg/dL BORDERLINE HIGH.........13 0-159 mg/dL HIGH.........16 0-189 mg/dL VERY HIGH...... ...>/= 190 mg/dL GLUCOSE BEDSIDE [id number] 16:31:00 Test Item Value Reference Range Interpretation Comments GLUCOSE BEDSIDE TESTING (test code 163 MG/DL 60-99 H = GLUBED) [id number] 16:27:00 Test Item Value Reference Range Interpretation Comments SURGICAL (test code = SR) --RUN DATE: 10/21/21 [place] - LAB PAGE 1 RUN TIME: 1627 Specimen Inquiry RUN USER: INTERFACE --PATIENT: LOYDA ELLSWORTH LOC: [facility] U #: [id number] AGE/SX: 56/M ROOM: [facility] RE10/18/21[facility] DR: Benita Prakash MD : 61 BED: A DIS: STATUS: ADM IN TLOC: -- SPEC #: [id number] RECD: 10/20/21 STATUS: DESHAWN TESFAYE #: [id number] CHIP: 10/19/21 [facility] DR: Benita Prakash MD ENTERED: 10/20/21 SP TYPE: SURGICAL OTHR DR: Triston Ronquillo MD R2 Deric Reilly MD, Amir S MD Malik, Rema MD Nevers,Enrrique ENRIQUE F0ERIGXYS: [id number], ANATOMIC SPEC, SPECIMEN TRACK COPIES TO: Triston Ronquillo MD [address] [address] [place] [address] Deric Reilly MD [address] [place] [address] Nakia Wiggins MD [address] [facility] [address] [place] [address] [place] W[place] [address] [facility] [address] [place] [address] Enrrique Campbell MD [address] [address] [place] [address] [place] [address] [place] [address] @[employer] PROCEDURES: [id number] (10/20/21) SPECIMEN TRACK (10/20/21) TISSUES: A. THROMBUS OR EMBOLUS - RIGHT LOWER EXTREMITY THROMBUS CONTINUED ON NEXT PAGE --RUN DATE: 10/21/21 [facility] PAGE 2 RUN TIME: 1627 Specimen Inquiry RUN USER: INTERFACE --SPEC #: [id number] PATIENT: LOYDA ELLSWORTH #[id number] (Continued) FINAL DIAGNOSIS Right lower extremity thrombus clot, designated from lower extremity removal of:- Blood clot identified- No tissue identified Comment: Negative for atypia/malignancy. Suggest clinical correlation. GROSS DESCRIPTION Right lower extremity Thrombus. It consists of approximately 3 cc of string like clot. Sections submitted as A1. Technical component performed at [facility],[id number] , [place] [address] Unless gross only, the diagnosis is based upon microscopic examination.Immunohistochemist ry: This test was developed and its performancecharacteristics determined by this laboratory. It has not been approved nordoes it need approval by the [place] FDA. Appropriate positive and negative controlsare reviewed and judged to be acceptable. This laboratory is certified underthe Clinical Laboratory Improvement Amendments (CLIA-88) as qualified toperform high complexity clinical laboratory testing. MICROSCOPIC DESCRIPTION Microscopic examination is performed on all specimens and the findings are incorporatedinto the final diagnosis. Please see diagnosis for the findings. Signed SIGNATURE ON FILE Nik Gonzáles 10/21/21 1627 -- END OF REPORT GLUCOSE BEDSIDE [id number] 15:46:00 Test Item Value Reference Range Interpretation Comments GLUCOSE BEDSIDE TESTING (test code 133 MG/DL 60-99 H = GLUBED) GLUCOSE BEDSIDE [id number] 11:55:00 Test Item Value Reference Range Interpretation Comments GLUCOSE BEDSIDE TESTING (test code 153 MG/DL 60-99 H = GLUBED) GLUCOSE BEDSIDE [id number] 08:11:00 Test Item Value Reference Range Interpretation Comments GLUCOSE BEDSIDE TESTING (test code 192 MG/DL 60-99 H = GLUBED) PTT [id number] 20:35:00 Test Item Value Reference Range Interpretation Comments PTT ACTIVATED (test code = APTT) 50.7 SECONDS 26.2-35.4 H Comments to Budget Controller: HEPARIN DRIPGLUCOSE BEDSIDE [id number] 20:23:00 Test Item Value Reference Range Interpretation Comments GLUCOSE BEDSIDE TESTING (test code 175 MG/DL 60-99 H = GLUBED) GLUCOSE BEDSIDE [id number] 17:03:00 Test Item Value Reference Range Interpretation Comments GLUCOSE BEDSIDE TESTING (test code 186 MG/DL 60-99 H = GLUBED) GLUCOSE BEDSIDE [id number] 11:19:00 Test Item Value Reference Range Interpretation Comments GLUCOSE BEDSIDE TESTING (test code 206 MG/DL 60-99 H = GLUBED) PTT [id number] 10:32:00 Test Item Value Reference Range Interpretation Comments PTT ACTIVATED (test code = APTT) 28.5 SECONDS 26.2-35.4 UNABLE TO DRAW BLOOD, REASON: CBNNOTIFIED PATIENT CARE STAFF: CARLOS LEPE 10/20/21 AT 0927 BY Michael Blair Comments to Budget Controller: HEPARIN DRIP GLUCOSE BEDSIDE [id number] 07:58:00 Test Item Value Reference Range Interpretation Comments GLUCOSE BEDSIDE TESTING (test code 213 MG/DL 60-99 H = GLUBED) PTT [id number] 05:39:00 Test Item Value Reference Range Interpretation Comments PTT ACTIVATED (test 200.2 SECONDS 26.2-35.4 HH CALLED TO CHALSIE code = APTT) K& READBACK ON 10/20/21 AT 053 9 BY Seferino Nino UNABLE TO DRAW BLOOD, REASON: CBNNOTIFIED PATIENT CARE STAFF: AMAN GONZALEZON 10/20/21 AT 0340 BY Saul Gray Comments to Budget Controller: HEPARIN DRIP PROTHROMBIN [id number] 01:07:00 Test Item Value Reference Range Interpretation Comments PROTHROMBIN TIME 13.3 SECONDS 9.4-12.7 H PATIENT (test code = PTP) INTERNATIONAL NORMAL 1.2 0.86-1.14 H The INR is to be RATIO (test code = used only for INR) monitoring oral anticoagulantth erap y. INDICATION I NR VALUE ---- ---- ---- -------1. Prophylaxis, de ep venous thrombos is, including hig h risk surgery. 2.0 - 3.0 2. Prophylaxis, de ep venous thrombos is, hip surgery, treatment for d eep venous thrombosis or pulmonary prevention of systemic emboli sm in patients wit h valvular heart disease, atrial fibrillation, tissue heart va lve, or acute myocar dial infarction. 2.0 - 3 .0 3. Mechanical prosthesis hear t valves, recurrent syste gianni embolism. 3.0 - 4.5 Comments to Budget Controller: HEPARIN DRIPBASIC METABOLIC [id number] 00:29:00 Test Item Value Reference Range Interpretation Comments SODIUM (test code = 136 MMOL/L 137-145 L NA) POTASSIUM (test code = 3.4 MMOL/L 3.5-5.1 L K) CHLORIDE (test code = 102 MMOL/L 98-107 N CL) CARBON DIOXIDE (test 23 MMOL/L 22-30 N code = CO2) ANION GAP (test code = 14 MMOL/L 14-24 N GAP) GLUCOSE (test code = 220 MG/DL 74-106 H GLU) BLOOD UREA NITROGEN 15 MG/DL 9-20 N (test code = BUN) GLOMERULAR FILTRATION > 60 Report ing units: RATE (test code = GFR) ml/mi n/1.73 m2 (Modified MDRD Formula)Referen ce Range: > or = 6 0 ml/min/1.73 m2 CREATININE (test code 0.70 MG/DL 0.66-1.25 N = CREAT) CALCIUM (test code = 8.2 MG/DL 8.4-10.2 L CA) CBC W/AUTO [id number] 00:17:00 Test Item Value Reference Range Interpretation Comments WHITE BLOOD CELL (test code = 14.7 K/MM3 3.8-9.8 H WBC) RED BLOOD CELL (test code = 5.03 M/MM3 3.95-5.67 N RBC) HEMOGLOBIN (test code = HGB) 15.7 G/DL 12.4-16.7 N HEMATOCRIT (test code = HCT) 45.5 % 35.9-49.5 N MEAN CELL VOLUME (test code = 91 fL 81.7-96.1 N MCV) MEAN CELL HGB (test code = MCH) 31.2 pg 27.6-33.2 N MEAN CELL HGB CONCETRATION 34.5 % 32.9-35.5 N (test code = MCHC) RED CELL DISTRIBUTION WIDTH 13.0 % 12.1-15.2 N (test code = RDW) PLATELET COUNT (test code = 152 K/MM3 129-368 N PLT) MEAN PLATELET VOLUME (test code 11.0 fl 7.4-10.4 H = MPV) NEUTROPHIL % (test code = NT%) 93.2 % 43-75 H IMMATURE GRANULOCYTE % (test 0.4 % 0.0-2.0 N code = IG%) LYMPHOCYTE % (test code = LY%) 5.5 % 14-44 L MONOCYTE % (test code = MO%) 0.7 % 4-13 L EOSINOPHIL % (test code = EO%) 0.0 % 0-6 N BASOPHIL % (test code = BA%) 0.2 % 0-2 N NUCLEATED RBC % (test code = 0.0 % 0-1.0 N NRBC%) NEUTROPHIL # (test code = NT#) 13.72 K/mm3 2.0-7.6 H IMMATURE GRANULOCYTE # (test 0.06 x10 3/uL 0-0.03 H code = IG#) LYMPHOCYTE # (test code = LY#) 0.81 K/mm3 1.0-3.8 L MONOCYTE # (test code = MO#) 0.11 K/mm3 0.1-0.8 N EOSINOPHIL # (test code = EO#) 0.00 K/mm3 0.0-0.2 N BASOPHIL # (test code = BA#) 0.03 K/mm3 0.0-0.2 N NUCLEATED RBC # (test code = 0.00 K/mm3 0.0-0.1 N NRBC#) [id number] 20:35:00 Test Item Value Reference Range Interpretation Comments ACT-ISTAT (test code = ACTI) 265 SEC 74-137 H [id number] 19:57:00 Test Item Value Reference Range Interpretation Comments ACT-ISTAT (test code = ACTI) 306 SEC 74-137 H PTT [id number] 12:53:00 Test Item Value Reference Range Interpretation Comments PTT ACTIVATED (test 74.1 SECONDS 26.2-35.4 HH CALLED Pk WHITLEY D& code = APTT) READBACK ON AT 1253 BY Agusto Springer Comments to Budget Controller: USE LEFT ARMPTT [id number] 05:44:00 Test Item Value Reference Range Interpretation Comments PTT ACTIVATED (test code = APTT) 41.9 SECONDS 26.2-35.4 H CBC W/AUTO [id number] 05:01:00 Test Item Value Reference Range Interpretation Comments WHITE BLOOD CELL (test code = 11.8 K/MM3 3.8-9.8 H WBC) RED BLOOD CELL (test code = 5.29 M/MM3 3.95-5.67 N RBC) HEMOGLOBIN (test code = HGB) 16.5 G/DL 12.4-16.7 N HEMATOCRIT (test code = HCT) 47.0 % 35.9-49.5 N MEAN CELL VOLUME (test code = 89 fL 81.7-96.1 N MCV) MEAN CELL HGB (test code = MCH) 31.2 pg 27.6-33.2 N MEAN CELL HGB CONCETRATION 35.1 % 32.9-35.5 N (test code = MCHC) RED CELL DISTRIBUTION WIDTH 13.2 % 12.1-15.2 N (test code = RDW) PLATELET COUNT (test code = 188 K/MM3 129-368 N PLT) MEAN PLATELET VOLUME (test code 11.0 fl 7.4-10.4 H = MPV) NEUTROPHIL % (test code = NT%) 66.8 % 43-75 N IMMATURE GRANULOCYTE % (test 0.5 % 0.0-2.0 N code = IG%) LYMPHOCYTE % (test code = LY%) 24.7 % 14-44 N MONOCYTE % (test code = MO%) 6.5 % 4-13 N EOSINOPHIL % (test code = EO%) 1.1 % 0-6 N BASOPHIL % (test code = BA%) 0.4 % 0-2 N NUCLEATED RBC % (test code = 0.0 % 0-1.0 N NRBC%) NEUTROPHIL # (test code = NT#) 7.87 K/mm3 2.0-7.6 H IMMATURE GRANULOCYTE # (test 0.06 x10 3/uL 0-0.03 H code = IG#) LYMPHOCYTE # (test code = LY#) 2.91 K/mm3 1.0-3.8 N MONOCYTE # (test code = MO#) 0.77 K/mm3 0.1-0.8 N EOSINOPHIL # (test code = EO#) 0.13 K/mm3 0.0-0.2 N BASOPHIL # (test code = BA#) 0.05 K/mm3 0.0-0.2 N NUCLEATED RBC # (test code = 0.00 K/mm3 0.0-0.1 N NRBC#) CLOTTEDCOMPREHENSIVE METABOLIC [id number] 04:21:00 Test Item Value Reference Range Interpretation Comments SODIUM (test code 138 MMOL/L 137-145 N = NA) POTASSIUM (test 3.7 MMOL/L 3.5-5.1 N code = K) CHLORIDE (test 104 MMOL/L 98-107 N code = CL) CARBON DIOXIDE 26 MMOL/L 22-30 N (test code = CO2) ANION GAP (test 12 MMOL/L 14-24 L code = GAP) GLUCOSE (test 145 MG/DL 74-106 H code = GLU) BLOOD UREA 16 MG/DL 9-20 N NITROGEN (test code = BUN) GLOMERULAR > 60 Reporting units : FILTRATION RATE ml/min/1.73 m2 (Modified (test code = GFR) MDRD Formu la)Reference Range: > or = 6 0 ml/min/1.73 m2 CREATININE (test 0.70 MG/DL 0.66-1.25 N code = CREAT) TOTAL PROTEIN 6.4 G/DL 6.2-7.6 N Ortho Clinical Diagnostic (test code = has made us hardy re of PROT) newinformation regarding the potential i nterference ofEltrombopag (a bone marrow stimulan t used to treatthrombocyt onmenia and aplastic anemia ) with specific assays on the Vitros 5600 of which Total Protein is one of thoseassays per formed in our lab.Interfe rence testing perform ed at Ortho determined that Eltrombopag does interfere with Vitros Total Protein asfollowsEltrom bopag Interference fo r Vitros Product Total Protein:======= Eltrombopag Max Observed A vg. BiasConcentrati on Concentration Concentration== ==== 2.5 mg/dl 6.0 g/dl +0.41 +0.34 3.5 mg/dl 6.0 g/dl +0.50 +0.45 5 mg/dl 6.0 g/dl +0.73 +0.65 2.5 mg/dl 8.0 g/dl +0.44 +0.41 3.5 mg/dl 8.0 g/dl +0.55 +0.52 5 mg/dl 8.0 g/dl +0.86 +0.77 ALBUMIN (test 3.6 G/DL 3.5-5.0 N code = ALB) CALCIUM (test 8.7 MG/DL 8.4-10.2 N code = CA) BILIRUBIN TOTAL 1.2 MG/DL 0.2-1.3 Eltrombopag Interference (test code = for Vitros Prod uct TBil, BILT) BuBc: Assa y Eltrombopag Analyte/ Max Observed Avg. Bias Concentrati on Concentration Concentration== ====TBil 7mg/dl T Larry/ 1.2mg/dl +0.23 mg.dl +0.20mg/dlBuBc 3.5mg/dl Bu/0.8mg/dl +0.25mg/dl +0 .24mg/dlBuBc 7 mg/dl Bu/14.2mg/dl +0.38mg/dl +0.25mg/dlBuBc 5mg/dl Bc/0mg/dl +0.25mg/dl +0 .15mg/dlBuBc 3.5mg/dl Bc/2.8mg/dl +0.25mg/dl +0.23mg/dl SGOT/AST (test 27 UNITS/L 17-59 N code = AST) SGPT/ALT (test 32 UNITS/L 0-49 N code = ALT) ALKALINE 88 UNITS/L 38-126 N PHOSPHATASE (test code = ALKP) - CTA ABD AORTA IF LWEX [id number] 22:32:00 [facility] 1965 Sex: M Patient Name: LOYDA ELLSWORTH Unit No: [id number] EXAMS: CPT CODE: [id number] [place] [address] CTA AORTA AND RUNOFFS Dictation Location N13 CLINICAL HISTORY: DVT in the right femoral and anterior tibial vein TECHNIQUE: Helical CTA of the abdominal aorta, and lower extremities was performed following the dynamic intravenous administration of 150 cc Isovue 370 without complication. This exam was performed according toour departmental dose optimization program, which includes automated exposure control, adjustment of the mA and/ or KV according to patient size and/or use of iterative reconstruction technique. 3D volume rendering CT angiograms were reconstructed. DLP 1658 mGy cm* Comparison study: None FINDINGS: 1) Abdominal aorta- there is scattered mild atherosclerosis. No AAA or aortic dissection in the abdomen. There is single renal arteries which opacify normally. Celiac axis, SMA and KATY enhance normally. 2) Iliac arteries- there is mild calcific plaque without significant stenosis. 3) Femoral arteries- both common femoral arteries are normal. Profunda femoris arteries are normal. There is greater than 90% narrowing of the distal right femoral artery. Distal left femoral artery is normal. 4) Popliteal arteries- both patent without significant narrowing. The right popliteal artery is reconstituted by collaterals. 5) Runoffs- the left posterior tibial artery is occluded at the mid calf and distal. Left peroneal, anterior tibial and dorsalis pedis artery are patent. Arteries of the right trifurcation are intact. Within the soft tissues of the abdomen and pelvis, a 2 cm gallstone is present in the gallbladder. No evidence of pericholecystic fluid.. IMPRESSION: 1. 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 The right popliteal artery is reconstituted by collaterals. 2. 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 3. Gallstone in the gallbladder. at 2232 Reported and signed by: Layla Regalado M.D. [facility] NAME: LOYDA ELLSWORTH PHYS: [place] [address] : 1965 AGE: 56 SEX: M LOC: Z.ERMED 1 PHONE #: [phone] EXAM DATE: 10/18/2021 STATUS: ADM IN FAX #: [phone] RAD #: D/C DT PAGE 1 Signed Report (CONTINUED) Patient Name: LOYDA ELLSWORTH Unit No: [id number] EXAMS: CPT CODE: [id number] [place] [address] <Continued> CC: Maykel Darby MD Technologist: Cleo Chase (RT); Flaquita Roman, CTDI: DLP: Trnscrpt: 10/18/2021 (2231) tSOFIMVT [facility] NAME: LOYDA ELLSWORTH [address] [place] [address] PHYS: [place] [address] : 1965 AGE: 56 SEX: M LOC: ZFARHADED 1 PHONE #: [phone] EXAM DATE: 10/18/2021 STATUS: ADM IN FAX #: [phone] RAD #: D/C DTPAGE 2 Signed Report Patient Name: LOYDA ELLSWORTH Unit No: [id number] EXAMS:CPT CODE: [id number] [place] [address] <Continued> Orig Print D/T: S: 10/18/2021 (2234) [facility] NAME: LOYDA ELLSWORTH [address] PHYS: Maykel Poole MD [place] [id number] : 1965 AGE: 56 SEX: M LOC: Z.ERMED 1 PHONE #: [phone] EXAM DATE: 10/18/2021 STATUS: ADM IN FAX #: RAD #: D/C DT PAGE 3 Signed ReportPROTHROMBIN [id number] 21:36:00 Test Item Value Reference Range Interpretation Comments PROTHROMBIN TIME 11.7 SECONDS 9.4-12.7 N PATIENT (test code = PTP) INTERNATIONAL NORMAL 1.1 0.86-1.14 N The INR is to be RATIO (test code = used only for INR) monitoring oral anticoagulantth erap y. INDICATION I NR VALUE ---- ---- ---- -------1. Prophylaxis, de ep venous thrombos is, including hig h risk surgery. 2.0 - 3.0 2. Prophylaxis, de ep venous thrombos is, hip surgery, treatment for d eep venous thrombosis or pulmonary prevention of systemic emboli sm in patients wit h valvular heart disease, atrial fibrillation, tissue heart va lve, or acute myocar dial infarction. 2.0 - 3 .0 3. Mechanical prosthesis hear t valves, recurrent syste gianni embolism. 3.0 - 4.5 PTT [id number] 21:36:00 Test Item Value Reference Range Interpretation Comments PTT ACTIVATED (test 150.7 SECONDS 26.2-35.4 HH CALLED TO [place].N code = APTT) & READBACK ON 10/18/21 AT 213 4 BY Esther Cali BASIC METABOLIC [id number] 21:22:00 Test Item Value Reference Range Interpretation Comments SODIUM (test code = 139 MMOL/L 137-145 N NA) POTASSIUM (test code = 3.7 MMOL/L 3.5-5.1 N K) CHLORIDE (test code = 105 MMOL/L 98-107 N CL) CARBON DIOXIDE (test 27 MMOL/L 22-30 N code = CO2) GLUCOSE (test code = 175 MG/DL 74-106 H GLU) BLOOD UREA NITROGEN 17 MG/DL 9-20 N (test code = BUN) GLOMERULAR FILTRATION > 60 Report ing units: RATE (test code = GFR) ml/mi n/1.73 m2 (Modified MDRD Formula)Referen ce Range: > or = 6 0 ml/min/1.73 m2 CREATININE (test code 0.70 MG/DL 0.66-1.25 N = CREAT) CALCIUM (test code = 8.8 MG/DL 8.4-10.2 N CA) HEPATIC FUNCTION [id number] 21:22:00 Test Item Value Reference Range Interpretation Comments TOTAL PROTEIN 6.9 G/DL 6.2-7.6 N Ortho Clinical Diagnostic (test code = has made us hardy re of PROT) newinformation regarding the potential i nterference ofEltrombopag (a bone marrow stimulan t used to treatthrombocyt onmenia and aplastic anemia ) with specific assays on the [employer] 5600 of which Total Protein is one of thoseassays per formed in our lab.Interfe rence testing perform ed at Ortho determined that Eltrombopag does interfere with Vitros Total Protein asfollowsEltrom bopag Interference fo r Vitros Product Total Protein:======= Eltrombopag Max Observed A vg. BiasConcentrati on Concentration Concentration== ==== 2.5 mg/dl 6.0 g/dl +0.41 +0.34 3.5 mg/dl 6.0 g/dl +0.50 +0.45 5 mg/dl 6.0 g/dl +0.73 +0.65 2.5 mg/dl 8.0 g/dl +0.44 +0.41 3.5 mg/dl 8.0 g/dl +0.55 +0.52 5 mg/dl 8.0 g/dl +0.86 +0.77 ALBUMIN (test 3.8 G/DL 3.5-5.0 N code = ALB) BILIRUBIN TOTAL 1.4 MG/DL 0.2-1.3 H Eltrombopag Interference (test code = for Vitros Prod uct TBil, BILT) BuBc: Assa y Eltrombopag Analyte/ Max Observed Avg. Bias Concentrati on Concentration Concentration== ====TBil 7mg/dl T Larry/ 1.2mg/dl +0.23 mg.dl +0.20mg/dlBuBc 3.5mg/dl Bu/0.8mg/dl +0.25mg/dl +0 .24mg/dlBuBc 7 mg/dl Bu/14.2mg/dl +0.38mg/dl +0.25mg/dlBuBc 5mg/dl Bc/0mg/dl +0.25mg/dl +0 .15mg/dlBuBc 3.5mg/dl Bc/2.8mg/dl +0.25mg/dl +0.23mg/dl BILIRUBIN DIRECT 0.0 MG/DL 0.0-0.3 N Eltrombopag Interference (test code = for Vitros Prod uct TBil, BILD) BuBc: Assa y Eltrombopag Analyte/ Max Observed Avg. Bias Concentrati on Concentration Concentration== ====TBil 7mg/dl T Larry/ 1.2mg/dl +0.23 mg.dl +0.20mg/dlBuBc 3.5mg/dl Bu/0.8mg/dl +0.25mg/dl +0 .24mg/dlBuBc 7 mg/dl Bu/14.2mg/dl +0.38mg/dl +0.25mg/dlBuBc 5mg/dl Bc/0mg/dl +0.25mg/dl +0 .15mg/dlBuBc 3.5mg/dl Bc/2.8mg/dl +0.25mg/dl +0.23mg/dl SGOT/AST (test 25 UNITS/L 17-59 N code = AST) SGPT/ALT (test 28 UNITS/L 0-49 N code = ALT) ALKALINE 93 UNITS/L 38-126 N PHOSPHATASE (test code = ALKP) CBC W/AUTO [id number] 21:05:00 Test Item Value Reference Range Interpretation Comments WHITE BLOOD CELL (test code = 13.7 K/MM3 3.8-9.8 H WBC) RED BLOOD CELL (test code = 5.40 M/MM3 3.95-5.67 N RBC) HEMOGLOBIN (test code = HGB) 16.9 G/DL 12.4-16.7 H HEMATOCRIT (test code = HCT) 48.0 % 35.9-49.5 N MEAN CELL VOLUME (test code = 89 fL 81.7-96.1 N MCV) MEAN CELL HGB (test code = MCH) 31.3 pg 27.6-33.2 N MEAN CELL HGB CONCETRATION 35.2 % 32.9-35.5 N (test code = MCHC) RED CELL DISTRIBUTION WIDTH 13.2 % 12.1-15.2 N (test code = RDW) PLATELET COUNT (test code = 195 K/MM3 129-368 N PLT) MEAN PLATELET VOLUME (test code 10.9 fl 7.4-10.4 H = MPV) NEUTROPHIL % (test code = NT%) 59.6 % 43-75 N IMMATURE GRANULOCYTE % (test 0.6 % 0.0-2.0 N code = IG%) LYMPHOCYTE % (test code = LY%) 31.0 % 14-44 N MONOCYTE % (test code = MO%) 6.7 % 4-13 N EOSINOPHIL % (test code = EO%) 1.7 % 0-6 N BASOPHIL % (test code = BA%) 0.4 % 0-2 N NUCLEATED RBC % (test code = 0.0 % 0-1.0 N NRBC%) NEUTROPHIL # (test code = NT#) 8.15 K/mm3 2.0-7.6 H IMMATURE GRANULOCYTE # (test 0.08 x10 3/uL 0-0.03 H code = IG#) LYMPHOCYTE # (test code = LY#) 4.23 K/mm3 1.0-3.8 H MONOCYTE # (test code = MO#) 0.91 K/mm3 0.1-0.8 H EOSINOPHIL # (test code = EO#) 0.23 K/mm3 0.0-0.2 H BASOPHIL # (test code = BA#) 0.06 K/mm3 0.0-0.2 N NUCLEATED RBC # (test code = 0.00 K/mm3 0.0-0.1 N NRBC#) LIPID [id number] 05:40:18 Test Item Value Reference Range Interpretation Comments CHOLESTEROL (test 114 MG/DL <200 code = 2210) TRIGLYCERIDES (test 67 MG/DL <150 code = 2232) HDL CHOLESTEROL (test 36 MG/DL >39 L code = 2220) CALC LDL CHOL (test 64 MG/DL <100 NOTE: C ALCULATED LDL code = 2237) IS BASED ON MUKESH-HERRING METHOD WHICHINCLUDES ADJUSTABLE TRIGLYCERIDE:VL DL CHOLESTEROL RAT IO.THIS FACTOR VARIES B Y MEASURED TRIGLY CERIDE AND NON-HDLCHOL ESTEROL CONCENTRATIONS WITH INCREASED CALCU LATED LDL SEENIN HIGH ER TRIGLYCERIDE OR LOWER NON-HDL SPECIME NS. FOR MOREINFORMATION , SEE CLIENT ANNOUNCE MENT AT [email or web address] LDL/HDL 1.78 RATIO <3.55 (test code = 2238) HEMOGLOBIN [id number] 05:20:31 Test Item Value Reference Range Interpretation Comments HEMOGLOBIN A1c (test 8.2 % 4.2-5.6 H [employer] [facility] code = 25913) ASSOCIATION IDELINES FOR HGB A1C: PREDIABETES/INC REASED [...] UNLESS OTHER GARCIA INDICATED, ALL TESTING PERFORMED [facility] [employer] [address] [place] [id number] DIRECTOR OF BUSINESS CONTINUITY: SEFERINO STINSON M.D. CLIA NUMBER [id number] CAP ACCREDITATION N O. [id number] LIPID [id number] 06:30:26 Test Item Value Reference Range Interpretation [...] MOREINFORMATION , SEE CLIENT ANNOUNCE MENT AT [email or web address] [email or web address] RATIO LDL/HDL 2.14 RATIO <3.55 (test code = 2238) COMPREHENSIVE METABOLIC [id number] 06:30:26 Test Item Value Reference Range Interpretation Comments GLUCOSE (test code = 131 MG/DL 70-99 H 2216) BUN (test code = 19 MG/DL 6-20 2207) CREATININE (test 0.73 MG/DL 0.80-1.40 L EFFECTIVE code = 2214) 04/18/2021, [facility] HAS IMPLEMENTED THE NKF-ASN RECOMME NDED KD-EPI EGF R REFIT CALCULATI ON THAT DOES NOT I NCLUDE A COEFFICIENT FORRACE. FOR MO RE INFORMATION, SE E ANNOUNCEMENT [email or web address] eGFR (2020 CKD-EPI) 106 >60 (test code = 04638) ML/MIN/1.73 CALC BUN/CREAT (test 26 RATIO 6-28 code = 2235) SODIUM (test code = 144 MEQ/L 090-433 6973) POTASSIUM (test code 4.2 MEQ/L 3.5-5.4 = 2227) CHLORIDE (test code 107 MEQ/L 95-107 = 2215) CARBON DIOXIDE (test 24 MEQ/L 19-31 code = 220) CALCIUM (test code = 9.2 MG/DL 8.5-10.5 2208) PROTEIN, TOTAL (test 7.4 G/DL 6.1-8.3 code = 222) ALBUMIN (test code = 4.3 G/DL 3.5-5.2 2200) CALC GLOBULIN (test 3.1 G/DL 1.9-3.7 code = 2240) CALC A/G RATIO (test 1.4 RATIO 1.0-2.6 code = 223) BILIRUBIN, TOTAL 1.0 MG/DL See_Comment [Automated message] (test code = 2207) The syste m which generated this result transmitted ref erence range: <=1.2. T he reference range was not used to int erpret this result as normal/abnormal . ALKALINE PHOSPHATASE 98 U/L 40-123 (test code = 2203) AST (test code = 18 U/L 9-50 2217) ALT (test code = 28 U/L 5-50 UNLE SS 2218) OTHERWISE INDIC ATED, ALL TESTING PER FORMED ATCLINICAL PATH [facility], [facility]. [address] [place] [address] LABORATORY DIRE CTOR: SEFERINO MAI M.D. CLIA NUMBER [id number] CAP ACCREDITATION N O. [id number] HEMOGLOBIN [id number] 04:07:18 Test Item Value Reference Range Interpretation Comments HEMOGLOBIN A1c (test 7.3 % 4.2-5.6 H [employer] [facility] code = 12307) ASSOCIATION IDELINES FOR HGB A1C: PREDIABETES/INC REASED [...] LABORATORY CONS ULTATION. CBC W/AUTO DIFF WITH [id number] 03:18:54 Test Item Value Reference Range Interpretation [...] LL BE ELIMINATED REDUNDANT TOABS OLUTE COUNTS.SEE [email or web address] _upda te LYMPHOCYTES (test 23.9 % code = 1010) MONOCYTES (test code 4.9 % = 1011) EOSINOPHILS (test 1.3 % code = 1012) BASOPHILS (test code 0.4 % = 1013) IMMATURE GRANYLOCYTES 0.3 % (test code = 1036) NUCLEATED RBCS (test 0.0 /100 See_Comment [Autom ated message] code = 1065) WBC'S The system [employer] h generated this result transmit michele reference [...] RBCS 0.00 K/UL 0.00-0.11 (test code = 97350)
== END 2021-11-09 13:34 | disposition short-term general hospital (02) | DRG 300 ==
LOC: ER 04:51 → ERHOLD 07:21 → 2ND 09:15
PROVIDERS: ADMIT Hospitalist; ATTEND Hospitalist
DX: I74.3 Embolism and thrombosis of arteries of the lower extremities (principal); K81.0 Acute cholecystitis; E11.9 Type 2 diabetes mellitus without complications; I10 Essential (primary) hypertension; I77.1 Stricture of artery; Z98.890 Other specified postprocedural states; Z20.822 Contact with and (suspected) exposure to COVID-19
CPT/HCPCS: 36415; 71045; 73706; 74181; 80053; 82947; 83690; 83735; 85025; 93005; 93926; 93971; 96361; 96365; 96375; 99285; J1170; J2405; J2543; J3475; J3480; J3490; J7030; Q9967; U0003